=== PATIENT | female | born 1970 | race African-American/Black ===

== ENCOUNTER 2019-08-19 17:46 | Emergency (ER) | payer MEDICAID ==
[~2019-08-19] VITALS: Ht 157.5 cm; Wt 78.0 kg
[~2019-08-19 17:46] MED LIST: CARAFATE1 G1 ORAL; COLACE100 MG ORAL; CYCLOBENZAPRINE10 MG ORAL; DICYCLOMINE HCL10 MG PO; DIPHENHYDRAMINE25 M1 ORAL; LORAZEPAM2 MG/1 M3 PO; OXYCODONE-ACET1 EAC3 ORAL; PROMETHAZI6.25 MG/1 ORAL; PROMETHAZINE HC25 M1 ORAL; UNOBMED; ZOFRAN4 M1 ORAL; ZOLPIDEM TARTRA10 MG ORAL
[2019-08-19] MEDS ORDERED: Hydromorphone 0.5mg/0.5ml inj IVP ONE ×2 (18:00→20:45)
[2019-08-19] MEDS ORDERED: Omnipaque-300 100ml vial INJ PRN (18:00)
[2019-08-19 18:09] VITALS: BP 155/107
--- NOTE | 2019-08-19 18:09 | NUR ---
ED Nurse Note: PT FROM HOME CAME DUE TO LOWER ABD PAIN WITH N/V X 4 DAYS BUT WORSENED TODAY. ON AND OFF DIARRHEA. AAO X4 AND AMBULATORY.
--- NOTE | 2019-08-19 18:26 | Emergency Room Report ---
History of Present Illness General Chief Complaint: Abdominal Pain Present Illness HPI 48-year-old female history of gastroparesis idiopathic history of chronic pain, takes Percocet as an outpatient presents with diffuse achy abdominal pain started 5 days ago no aggravating relieving factors severity is moderate, intermittent, she endorses cramps, no constipation no diarrhea no nausea vomiting no chest pain or shortness of breath patient presents for evaluation Allergies: Coded Allergies: METOCLOPRAMIDE (Verified Allergy, Severe, 07/23/15) NSAIDS (NON-STEROIDAL ANTI-INFLAMMA (Verified Allergy, Severe, 07/23/15) MORPHINE (Verified Allergy, Intermediate, 07/23/15) PROCHLORPERAZINE (Verified Allergy, Intermediate, Hives, 07/23/15) SHELLFISH DERIVED (Verified Allergy, Unknown, 08/19/19) Patient History Past Medical History: see triage record Last Menstrual Period: HYSTERECTOMY Now: No Reviewed Nursing Documentation: PMH: Agreed; PSxH: Agreed Nursing Documentation-PMH Hx Cardiac Problems: Yes - endomitreosis, anemia, hypercholesterolemia Hx Cancer: No Hx Gastrointestinal Problems: Yes - gastroparesis, gastritis, HYSTERECTOMNY Hx Neurological Problems: No Physical Exam Vital Signs Date Time Temp Pulse Resp B/P (MAP) Pulse Ox O2 Delivery O2 Flow Rate FiO2 08/19/19 17:59 97.9 95 14 155/107 (123) 100 Room Air Medical Decision Making Diagnostic Impression: Primary Impression: Abdominal pain Qualified Codes: R10.84 - Generalized abdominal pain ER Course 48-year-old female history of gastroparesis presents with vague abdominal pain times a number of days, differential diagnosis includes appendicitis, gastritis , diverticulitis, SBO, Patient with soft abdomen no rebound no guarding, CT scan negative, white blood cell count normal Patient without a UTI Pain has been persisting for greater than 3 days, no acute emergent pathology at this time Disposition home with return precautions Laboratory Tests Test 08/19/19 18:20 08/19/19 18:25 White Blood Count 5.7 K/UL (4.8-10.8) Red Blood Count 5.10 M/UL (4.20-5.40) Hemoglobin 13.4 G/DL (12.0-16.0) Hematocrit 41.7 % (37.0-47.0) Mean Corpuscular Volume 82 FL (80-99) Mean Corpuscular Hemoglobin 26.2 PG (27.0-31.0) L Mean Corpuscular Hemoglobin Concent 32.1 G/DL (32.0-36.0) Red Cell Distribution Width 12.2 % (11.6-14.8) Platelet Count 325 K/UL (150-450) Mean Platelet Volume 5.9 FL (6.5-10.1) L Neutrophils (%) (Auto) 52.1 % (45.0-75.0) Lymphocytes (%) (Auto) 41.1 % (20.0-45.0) Monocytes (%) (Auto) 3.9 % (1.0-10.0) Eosinophils (%) (Auto) 1.7 % (0.0-3.0) Basophils (%) (Auto) 1.3 % (0.0-2.0) Sodium Level 139 MMOL/L (136-145) Potassium Level 3.6 MMOL/L (3.5-5.1) Chloride Level 101 MMOL/L (98-107) Carbon Dioxide Level 28 MMOL/L (21-32) Anion Gap 10 mmol/L (5-15) Blood Urea Nitrogen 7 mg/dL (7-18) Creatinine 0.7 MG/DL (0.55-1.30) Estimate Glomerular Filtration Rate > 60 mL/min (>60) Glucose Level 89 MG/DL (74-106) Calcium Level 8.8 MG/DL (8.5-10.1) Total Bilirubin 0.2 MG/DL (0.2-1.0) Aspartate Amino Transferase (AST) 21 U/L (15-37) Alanine Aminotransferase (ALT) 23 U/L (12-78) Alkaline Phosphatase 77 U/L (46-116) Total Protein 8.2 G/DL (6.4-8.2) Albumin 3.9 G/DL (3.4-5.0) Globulin 4.3 g/dL Albumin/Globulin Ratio 0.9 (1.0-2.7) L Lipase 43 U/L (73-393) L Urine Color Pale yellow Urine Appearance Clear Urine pH 7 (4.5-8.0) Urine Specific [place] 1.005 (1.005-1.035) Urine Protein Negative (NEGATIVE) Urine Glucose (UA) Negative (NEGATIVE) Urine Ketones Negative (NEGATIVE) Urine Blood Negative (NEGATIVE) Urine Nitrite Negative (NEGATIVE) Urine Bilirubin Negative (NEGATIVE) Urine Urobilinogen Normal MG/DL (0.0-1.0) Urine Leukocyte Esterase Negative (NEGATIVE) CT/MRI/US Diagnostic Results CT/MRI/US Diagnostic Results : Impression Procedure: CT Abdomen Pelvis w/Contrast CT ABDOMEN + PELVIS With Contrast: No acute process along the GI tract. Status post appendectomy. No free fluid. Status post hysterectomy and cholecystectomy. Hemangioma within hepatic segment 8. Unremarkable appearance of the pancreas, spleen, adrenal glands, and kidneys. Dictated By: Bebeto Townsend M.D. Electronically Signed By: Signed Date/Time CC: Last Vital Signs Date Time Temp Pulse Resp B/P (MAP) Pulse Ox O2 Delivery O2 Flow Rate FiO2 08/19/19 18:09 80 18 Room Air 08/19/19 18:09 97.9 155/107 100 Disposition: HOME, SELF-CARE Condition: Stable Referrals: [facility] Patient Instructions: Abdominal Pain, Adult Additional Instructions: The patient was provided with discharge instructions, notified to follow-up with a primary care doctor and or specialist in the next 24-48 hours, and to return to the ED if they have worsening of their symptoms. Please note that this report is being documented using [employer] technology. This can lead to erroneous entry secondary to incorrect interpretation by the dictating instrument. Lenard Shaffer MD Aug 19, 2019 18:26
[2019-08-19 18:30] LABS: BASOPHILS % (AUTO) 1.3 % (0.0-2.0); EOSINOPHILS % (AUTO) 1.7 % (0.0-3.0); HEMATOCRIT 41.7 % (37.0-47.0); HEMOGLOBIN 13.4 G/DL (12.0-16.0); LYMPHOCYTES % (AUTO) 41.1 % (20.0-45.0); MEAN CORPUSCULAR VOLUME 82 FL (80-99); MONOCYTES % (AUTO) 3.9 % (1.0-10.0); NEUTROPHILS % (AUTO) 52.1 % (45.0-75.0); PLATELET COUNT 325 K/UL (150-450); RED CELL DISTRIBUTION WIDTH 12.2 % (11.6-14.8); WHITE BLOOD COUNT 5.7 K/UL (4.8-10.8)
--- NOTE | 2019-08-19 18:32 | NUR ---
ED Nurse Note: COLLECTED BLOOD/URINE THEN SENT.
[2019-08-19 18:45] LABS: ANION GAP 10 mmol/L (5-15); BLOOD UREA NITROGEN 7 mg/dL (7-18); CALCIUM 8.8 MG/DL (8.5-10.1); CARBON DIOXIDE 28 MMOL/L (21-32); CHLORIDE 101 MMOL/L (98-107); CREATININE 0.7 MG/DL (0.55-1.30); POTASSIUM 3.6 MMOL/L (3.5-5.1); SODIUM 139 MMOL/L (136-145)
[2019-08-19 18:46] LABS: APPEARANCE,URINE CLEAR; BILIRUBIN, URINE NEGATIVE (NEGATIVE); COLOR,URINE PALE YELLOW; GLUCOSE, URINE (UA) NEGATIVE (NEGATIVE); KETONES,URINE NEGATIVE (NEGATIVE); LEUKOCYTE ESTERASE ,URINE NEGATIVE (NEGATIVE); NITRITE,URINE NEGATIVE (NEGATIVE); PH,URINE 7 (4.5-8.0); PROTEIN,URINE NEGATIVE (NEGATIVE); UROBILINOGEN,URINE NORMAL MG/DL (0.0-1.0)
[2019-08-19 18:50] LABS: ALANINE AMINOTRANSFERASE 23 U/L (12-78); ALBUMIN 3.9 G/DL (3.4-5.0); ALBUMIN/GLOBULIN RATIO 0.9 (1.0-2.7); ALKALINE PHOSPHATASE 77 U/L (46-116); ASPARTATE AMINO TRANSFERASE 21 U/L (15-37); BILIRUBIN,TOTAL 0.2 MG/DL (0.2-1.0)
--- NOTE | 2019-08-19 19:12 | NUR ---
ED Nurse Note: PT STATES THAT SHE IS ALLERGIC TO SHELLFISH AND DR LUZ WAS NOTIFIED AND PT STILL WILL CONTINUE TO UNDERGO CT SCAN PROCEDURE OF ABDOMEN WITH CONTRAST.
[2019-08-19] MEDS ORDERED: DiphenhydrAMINE 50mg/ml Inj IVP ONE (19:15)
--- NOTE | 2019-08-19 19:15 | NUR ---
HAND-OFF: Report given to KEVON TAVAREZ.
--- NOTE | 2019-08-19 19:16 | NUR ---
ED Nurse Note: Received report from Valentina TAVAREZ. Patient alert and oriented, verbally responsive. Will cont to monitor.
--- NOTE | 2019-08-19 19:25 | NUR ---
ED Nurse Note: Patient was taken for CT.
--- NOTE | 2019-08-19 19:37 | NUR ---
ED Nurse Note: Patient came back from CT.
--- NOTE | 2019-08-19 20:06 | Diagnostic Imaging Report ---
INDICATION: Abdominal pain TECHNIQUE: Continuous helical transaxial imaging of the abdomen and pelvis was obtained from the lung bases to the pubic symphysis during intravenous contrast administration. Coronal 2-D reformats were also obtained. Study obtained in a Siemens sensation [address] Automatic Exposure Control was utilized. Total Dose length Product (DLP): 1496.[address] Dose Index Volume (CTDIvol): 25.9 mGy COMPARISON: None FINDINGS: Lungs: The visualized lung bases are clear. Liver: In the dome of the liver there is a hypodense mass measuring approximately 2.3 x 1.9 cm. There is suggestion of globular enhancement at the periphery of the mass, which likely represents a hemangioma. This study was only obtained during the portal venous phase of enhancement is incomplete with making a definitive diagnosis. Suggest either ultrasound correlation or repeat CT with dynamic multiphase hemangioma protocol. The liver is otherwise unremarkable. Gallbladder/biliary system: Cholecystectomy clips noted. No biliary ductal dilatation identified.. Spleen: Normal Pancreas: Normal Kidneys: Normal. No hydronephrosis identified. Adrenal glands: Normal Bowel: Surgical clips noted in the expected location of the appendix which is not identified. Bowel gas pattern appears nonobstructive. Moderate stool noted in the colon. Bladder: Normal Peritoneum: There is no free fluid. Appendix: Appendectomy noted There is surgical absence of the uterus. Bones: Normal IMPRESSION: No acute findings. Suspected hemangioma and within the liver. Suggest ultrasound correlation or repeat CT in multiple phases of enhancement. Status post cholecystectomy and hysterectomy. [facility] has communicated the preliminary results to the Emergency Department. Their findings are largely concordant with this report. The CT scanner at [facility] is accredited by the [employer] and the scans are performed using dose optimization techniques as appropriate to a performed exam including Automatic Exposure control.
[2019-08-19 20:56] VITALS: BP 135/80
--- NOTE | 2019-08-19 20:56 | NUR ---
ED Nurse Note: Pt cleared by ERMD for discharge. DC instructions was given and explained to pt and verbalized understanding of teachings. All medical deviecs such as ID band and IV line removed. Pt is AAO x4, ambulatory and left with all personal belongings. Accompanied by .
== END 2019-08-19 20:56 | disposition home or self-care (01) ==
LOC: EMR 18:26
DX: R10.84 Generalized abdominal pain (principal); Z88.8 Allergy status to other drugs, medicaments and biological substances; Z88.6 Allergy status to analgesic agent; E78.00 Pure hypercholesterolemia, unspecified; Z90.710 Acquired absence of both cervix and uterus; Z90.49 Acquired absence of other specified parts of digestive tract
CPT/HCPCS: 36415; 74177; 80053; 81003; 83690; 85025; 96361; 96374; 96375; 96376; J1170; J1200; J2405; J7030; Q9967; Z7502; 99284

== ENCOUNTER 2019-09-06 23:27 | Emergency (ER) | payer MEDICAID ==
[~2019-09-06] VITALS: Ht 157.5 cm; Wt 77.1 kg
--- NOTE | 2019-09-06 23:43 | NUR ---
ED Nurse Note: pt presents to ED c/o LLQ abd px that started at around 2300 earlier today. pt states that she was driving when the px suddenly happened and reports thinking that it feels like a hernia. she has had hernias in the past and thinks this is the same but more painful. pt states that she felt something in her LLQ that "moved" since onset of symptoms. pt is also nauseated without vomiting. she describes the px as "sharp," "stabbing," and "throbbing." pt is tearful upon inspection, LLQ is tender to palpation
[2019-09-06 23:46] VITALS: BP 140/95
[2019-09-07 00:11] LABS: APPEARANCE,URINE CLEAR; BILIRUBIN, URINE NEGATIVE (NEGATIVE); GLUCOSE, URINE (UA) NEGATIVE (NEGATIVE); KETONES,URINE NEGATIVE (NEGATIVE); LEUKOCYTE ESTERASE ,URINE NEGATIVE (NEGATIVE); NITRITE,URINE NEGATIVE (NEGATIVE); PH,URINE 6.5 (4.5-8.0); PROTEIN,URINE NEGATIVE (NEGATIVE); UROBILINOGEN,URINE NORMAL MG/DL (0.0-1.0)
[2019-09-07 00:13] LABS: COLOR,URINE YELLOW
[2019-09-07] MEDS ORDERED: HYDROmorphone 1mg/ml Carpuject IVP ONE (00:15)
[2019-09-07] MEDS ORDERED: Omnipaque-300 100ml vial INJ PRN (00:15)
[2019-09-07] MEDS ORDERED: DiphenhydrAMINE 50mg/ml Inj IVP ONE (00:15)
[2019-09-07 00:29] LABS: BASOPHILS % (AUTO) 1.2 % (0.0-2.0); EOSINOPHILS % (AUTO) 1.2 % (0.0-3.0); HEMATOCRIT 44.4 % (37.0-47.0); HEMOGLOBIN 14.3 G/DL (12.0-16.0); LYMPHOCYTES % (AUTO) 33.8 % (20.0-45.0); MEAN CORPUSCULAR VOLUME 83 FL (80-99); MONOCYTES % (AUTO) 4.9 % (1.0-10.0); NEUTROPHILS % (AUTO) 58.9 % (45.0-75.0); PLATELET COUNT 339 K/UL (150-450); RED BLOOD COUNT 5.34 M/UL (4.20-5.40); RED CELL DISTRIBUTION WIDTH 12.1 % (11.6-14.8)
[2019-09-07 00:41] LABS: ANION GAP 13 mmol/L (5-15); BLOOD UREA NITROGEN 7 mg/dL (7-18); CARBON DIOXIDE 23 MMOL/L (21-32); CHLORIDE 106 MMOL/L (98-107); CREATININE 0.6 MG/DL (0.55-1.30); POTASSIUM 3.9 MMOL/L (3.5-5.1); SODIUM 142 MMOL/L (136-145)
[2019-09-07 00:46] LABS: ALANINE AMINOTRANSFERASE 43 U/L (12-78); ALBUMIN 4.3 G/DL (3.4-5.0); ALBUMIN/GLOBULIN RATIO 0.9 (1.0-2.7); ALKALINE PHOSPHATASE 91 U/L (46-116); ASPARTATE AMINO TRANSFERASE 26 U/L (15-37); BILIRUBIN,TOTAL 0.2 MG/DL (0.2-1.0)
--- NOTE | 2019-09-07 01:10 | NUR ---
ED Nurse Note: pt transported to CT via wheelchair
--- NOTE | 2019-09-07 01:36 | NUR ---
ED Nurse Note: pt returned from CT
--- NOTE | 2019-09-07 01:38 | NUR ---
Patient came back from CT- IV infiltrated. SL removed.
[2019-09-07] MEDS ORDERED: Ondansetron ODT 8mg tab ORAL ONE (02:45)
[2019-09-07] MEDS ORDERED: HYDROmorphone 1mg/ml Carpuject IM ONE (02:45)
--- NOTE | 2019-09-07 02:48 | Diagnostic Imaging Report ---
EXAM: CT Abdomen and Pelvis With Intravenous Contrast CLINICAL HISTORY: ABD PAIN TECHNIQUE: Axial computed tomography images of the abdomen and pelvis with intravenous contrast. CTDI is 26.7 mGy and DLP is 1532 mGy-cm. One or more of the following dose reduction techniques were used: automated exposure control, adjustment of the mA and/or kV according to patient size, use of iterative reconstruction technique. COMPARISON: Soft tissue neck CT 08/19/19. FINDINGS: Lung bases: Unremarkable. No mass. No consolidation. ABDOMEN: Liver: Unremarkable. No mass. Gallbladder and bile ducts: Unremarkable. No calcified stones. No ductal dilation. Pancreas: Unremarkable. No mass. No ductal dilation. Spleen: Unremarkable. No splenomegaly. Adrenals: Unremarkable. No mass. Kidneys and ureters: Unremarkable. No solid mass. No hydronephrosis. Stomach and bowel: Gas throughout the colon. No colitis, diverticulitis, appendicitis or bowel obstruction. PELVIS: Appendix: See above. Bladder: Unremarkable. No mass. Reproductive: Unremarkable as visualized. ABDOMEN and PELVIS: Intraperitoneal space: Unremarkable. No free air. No significant fluid collection. Bones/joints: No acute fracture. No dislocation. Soft tissues: Unremarkable. Vasculature: Unremarkable. No abdominal aortic aneurysm. Lymph nodes: Unremarkable. No enlarged lymph nodes. IMPRESSION: 1. No acute or inflammatory disease or bowel obstruction. 2. Prior cholecystectomy. 3. No other acute disease.
--- NOTE | 2019-09-07 03:09 | Emergency Room Report ---
History of Present Illness General Chief Complaint: Abdominal Pain Source: Patient Present Illness HPI 48-year-old female presents with left lower quadrant pain that started 1 hour prior to arrival she felt her stomach ache and she felt a knot, that was palpable, no vomiting but she endorsed nausea and tenderness of the left lower quadrant severity was moderate, constant no known aggravating alleviating factors, patient does have a history of gastroparesis, patient also history of vague hernias she has a history of hysterectomy as well patient denies any diarrhea fevers or chills or chest pain or shortness of breath, patient was worried that something happened to her hernia patient presents for evaluation Allergies: Coded Allergies: METOCLOPRAMIDE (Verified Allergy, Severe, 07/23/15) NSAIDS (NON-STEROIDAL ANTI-INFLAMMA (Verified Allergy, Severe, 07/23/15) MORPHINE (Verified Allergy, Intermediate, 07/23/15) PROCHLORPERAZINE (Verified Allergy, Intermediate, Hives, 07/23/15) SHELLFISH DERIVED (Verified Allergy, Unknown, 08/19/19) Patient History Past Medical History: see triage record Last Menstrual Period: na Reviewed Nursing Documentation: PMH: Agreed; PSxH: Agreed Nursing Documentation-PMH Hx Cardiac Problems: Yes - endomitreosis, anemia, hypercholesterolemia Hx Cancer: No Hx Gastrointestinal Problems: Yes - gastroparesis, gastritis, HYSTERECTOMNY Hx Neurological Problems: No Review of Systems All Other Systems: negative except mentioned in HPI Physical Exam Vital Signs Date Time Temp Pulse Resp B/P (MAP) Pulse Ox O2 Delivery O2 Flow Rate FiO2 09/06/19 23:31 98.1 97 20 140/95 (110) 97 Room Air Sp02 EP Interpretation: reviewed, normal General Appearance: well appearing, no apparent distress, alert Head: normocephalic, atraumatic Eyes: bilateral eye PERRL, bilateral eye EOMI ENT: uvula midline, moist mucus membranes Neck: supple, thyroid normal, supple/symm/no masses Respiratory: lungs clear, no respiratory distress, no retraction, no accessory muscle use Cardiovascular #1: normal peripheral pulses, regular rate, rhythm, no edema, no gallop, no murmur Gastrointestinal: non tender, soft, no guarding, no rebound Musculoskeletal: normal inspection Neurologic: alert, oriented x3 Psychiatric: mood/affect normal Skin: no rash, warm/dry Medical Decision Making Diagnostic Impression: Primary Impression: Abdominal pain Qualified Codes: R10.32 - Left lower quadrant pain ER Course 48-year-old female presents with vague abdominal pain left lower quadrant possible SBO versus bowel obstruction versus diverticulitis, labs show no acute abnormalities, additionally CT scan shows no acute processes, patient's pain was well-controlled, counseled patient about strict abdominal return precautions , patient states 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, disposition home with return precautions Laboratory Tests Test 09/06/19 23:41 09/07/19 00:05 Urine Color Yellow Urine Appearance Clear Urine pH 6.5 (4.5-8.0) Urine Specific [place] 1.010 (1.005-1.035) Urine Protein Negative (NEGATIVE) Urine Glucose (UA) Negative (NEGATIVE) Urine Ketones Negative (NEGATIVE) Urine Blood Negative (NEGATIVE) Urine Nitrite Negative (NEGATIVE) Urine Bilirubin Negative (NEGATIVE) Urine Urobilinogen Normal MG/DL (0.0-1.0) Urine Leukocyte Esterase Negative (NEGATIVE) Urine HCG, Qualitative Negative (NEGATIVE) White Blood Count 6.0 K/UL (4.8-10.8) Red Blood Count 5.34 M/UL (4.20-5.40) Hemoglobin 14.3 G/DL (12.0-16.0) Hematocrit 44.4 % (37.0-47.0) Mean Corpuscular Volume 83 FL (80-99) Mean Corpuscular Hemoglobin 26.8 PG (27.0-31.0) L Mean Corpuscular Hemoglobin Concent 32.2 G/DL (32.0-36.0) Red Cell Distribution Width 12.1 % (11.6-14.8) Platelet Count 339 K/UL (150-450) Mean Platelet Volume 5.8 FL (6.5-10.1) L Neutrophils (%) (Auto) 58.9 % (45.0-75.0) Lymphocytes (%) (Auto) 33.8 % (20.0-45.0) Monocytes (%) (Auto) 4.9 % (1.0-10.0) Eosinophils (%) (Auto) 1.2 % (0.0-3.0) Basophils (%) (Auto) 1.2 % (0.0-2.0) Sodium Level 142 MMOL/L (136-145) Potassium Level 3.9 MMOL/L (3.5-5.1) Chloride Level 106 MMOL/L (98-107) Carbon Dioxide Level 23 MMOL/L (21-32) Anion Gap 13 mmol/L (5-15) Blood Urea Nitrogen 7 mg/dL (7-18) Creatinine 0.6 MG/DL (0.55-1.30) Estimate Glomerular Filtration Rate > 60 mL/min (>60) Glucose Level 97 MG/DL (74-106) Calcium Level 9.0 MG/DL (8.5-10.1) Total Bilirubin 0.2 MG/DL (0.2-1.0) Aspartate Amino Transferase (AST) 26 U/L (15-37) Alanine Aminotransferase (ALT) 43 U/L (12-78) Alkaline Phosphatase 91 U/L (46-116) Total Protein 9.1 G/DL (6.4-8.2) H Albumin 4.3 G/DL (3.4-5.0) Globulin 4.8 g/dL Albumin/Globulin Ratio 0.9 (1.0-2.7) L Lipase 59 U/L (73-393) L Human Chorionic Gonadotropin, Quant 3 mIU/mL (1-6) CT/MRI/US Diagnostic Results CT/MRI/US Diagnostic Results : Impression Procedure: CT Abdomen Pelvis w/Contrast EXAM: CT Abdomen and Pelvis With Intravenous Contrast CLINICAL HISTORY: ABD PAIN TECHNIQUE: Axial computed tomography images of the abdomen and pelvis with intravenous contrast. CTDI is 26.7 mGy and DLP is 1532 mGy-cm. One or more of the following dose reduction techniques were used: automated exposure control, adjustment of the mA and/or kV according to patient size, use of iterative reconstruction technique. COMPARISON: Soft tissue neck CT 08/19/19. FINDINGS: Lung bases: Unremarkable. No mass. No consolidation. ABDOMEN: Liver: Unremarkable. No mass. Gallbladder and bile ducts: Unremarkable. No calcified stones. No ductal dilation. Pancreas: Unremarkable. No mass. No ductal dilation. Spleen: Unremarkable. No splenomegaly. Adrenals: Unremarkable. No mass. Kidneys and ureters: Unremarkable. No solid mass. No hydronephrosis. Stomach and bowel: Gas throughout the colon. No colitis, diverticulitis, appendicitis or bowel obstruction. PELVIS: Appendix: See above. Bladder: Unremarkable. No mass. Reproductive: Unremarkable as visualized. ABDOMEN and PELVIS: Intraperitoneal space: Unremarkable. No free air. No significant fluid collection. Bones/joints: No acute fracture. No dislocation. Soft tissues: Unremarkable. Vasculature: Unremarkable. No abdominal aortic aneurysm. Lymph nodes: Unremarkable. No enlarged lymph nodes. IMPRESSION: 1. No acute or inflammatory disease or bowel obstruction. 2. Prior cholecystectomy. 3. No other acute disease. Dictated By: Gregg Basurto MD Electronically Signed By: Gregg Basurto MD Signed Date/Time 09/07/19 0247 CC: Lenard Shaffer MD Last Vital Signs Date Time Temp Pulse Resp B/P (MAP) Pulse Ox O2 Delivery O2 Flow Rate FiO2 09/07/19 01:00 98.1 09/06/19 23:46 97 20 Room Air 09/06/19 23:46 140/95 97 Condition: Stable Scripts Dicyclomine Hcl* (DICYCLOMINE HCL*) 10 Mg Capsule 10 MG ORAL QID PRN for Abdominal cramps, #20 CAP Prov: Lenard Shaffer MD 09/07/19 Referrals: [facility],REFERRING (PCP) [facility]. [facility] Patient Instructions: Abdominal Pain, Adult Additional Instructions: The patient was provided with discharge instructions, notified to follow-up with a primary care doctor and or specialist in the next 24-48 hours, and to return to the ED if they have worsening of their symptoms. Please note that this report is being documented using [employer] technology. This can lead to erroneous entry secondary to incorrect interpretation by the dictating instrument. Lenard Shaffer MD Sep 07, 2019 03:09
[2019-09-07] MEDS ORDERED: DICYCLOMINE HCL10 MG ORAL (03:33)
[2019-09-07 03:35] VITALS: BP 137/94
--- NOTE | 2019-09-07 03:35 | NUR ---
ER DISCHARGE NOTE: Patient is cleared to be discharged per ERMD, pt is aox4, on room air, with stable vital signs. pt and were given dc and prescription instructions. both pt and spouse verbalized understanding of teachings. pt id band and iv site removed without complications. pt is able to ambulate with steady gait. pt took all belongings.
== END 2019-09-07 03:35 | disposition home or self-care (01) ==
LOC: EMR 23:30
DX: R10.32 Left lower quadrant pain (principal); E78.00 Pure hypercholesterolemia, unspecified; I51.9 Heart disease, unspecified; K31.84 Gastroparesis; Z90.710 Acquired absence of both cervix and uterus
CPT/HCPCS: 36415; 74177; 80053; 81003; 81025; 83690; 84702; 85025; 96372; 96374; 96375; J1170; J1200; J2405; Q0162; Q9967; S0028; Z7502; 99284

== ENCOUNTER 2019-10-31 14:47 | Inpatient (IN) | payer MEDICAID ==
[~2019-10-31] VITALS: Ht 157.5 cm; Wt 79.4 kg
[~2019-10-31 14:47] MED LIST changes: +DICYCLOMINE HCL10 MG ORAL
--- NOTE | 2019-10-31 14:55 | NUR ---
ED Nurse Note: patient walked into ED from home c/o chills and vomiting for 2 days. patient reports she was unable to alleviate chills due to vomiting, she attempted to take tylenol but unable to keep it down. patient reports lower right back pain. patient also reports generalized bodyaches and diffuse lower abdominal pain. patient is alert awake x4 ambulatory, breathing unlabored and even, able to speak full sentences. patient on a hospital gown, on a quality assurance monitor.
--- NOTE | 2019-10-31 15:05 | NUR ---
ED Nurse Note: unsuccessful at IV attempt. notified to Marilee SOLIS
--- NOTE | 2019-10-31 15:10 | NUR ---
ED Nurse Note: urine sample and flu swab sent to lab.
[2019-10-31] MEDS ORDERED: cefTRIAXone 1 GM in NS 55 ML IVPB ONE (15:15)
--- NOTE | 2019-10-31 15:25 | Emergency Room Report ---
History of Present Illness General Chief Complaint: General Complaint Source: Patient Present Illness HPI 48-year-old female, presents with dysuria, right flank pain, left leg pain x2 days no aggravating alleviating factors severity is mild, constant he endorses fever/chills, patient presents for evaluation Allergies: Coded Allergies: METOCLOPRAMIDE (Verified Allergy, Severe, 07/23/15) NSAIDS (NON-STEROIDAL ANTI-INFLAMMA (Verified Allergy, Severe, 07/23/15) MORPHINE (Verified Allergy, Intermediate, 07/23/15) PROCHLORPERAZINE (Verified Allergy, Intermediate, Hives, 07/23/15) SHELLFISH DERIVED (Verified Allergy, Unknown, 08/19/19) Patient History Past Medical History: see triage record Last Menstrual Period: hystrectomy Reviewed Nursing Documentation: PMH: Agreed; PSxH: Agreed Nursing Documentation-PMH Past Medical History: No History, Except For Hx Cancer: No Hx Gastrointestinal Problems: Yes - gastroparesis, gastritis, HYSTERECTOMNY Hx Neurological Problems: No Review of Systems All Other Systems: negative except mentioned in HPI Physical Exam Vital Signs Date Time Temp Pulse Resp B/P (MAP) Pulse Ox O2 Delivery O2 Flow Rate FiO2 10/31/19 14:49 102.4 89 16 128/95 (106) 100 Room Air Sp02 EP Interpretation: reviewed, normal General Appearance: well appearing, no apparent distress, alert Head: normocephalic, atraumatic Eyes: bilateral eye PERRL, bilateral eye EOMI ENT: uvula midline, moist mucus membranes Neck: supple, thyroid normal, supple/symm/no masses Respiratory: lungs clear, no respiratory distress, no retraction, no accessory muscle use Cardiovascular #1: normal peripheral pulses, regular rate, rhythm, no edema, no gallop, no murmur Gastrointestinal: soft, no guarding, no rebound, tenderness - Suprapubically Genitourinary: CVA tenderness (R), CVA tenderness (L) Musculoskeletal: normal inspection Neurologic: alert, oriented x3 Psychiatric: mood/affect normal Skin: no rash, warm/dry Medical Decision Making Diagnostic Impression: Primary Impression: Pyelonephritis ER Course 48-year-old female presents with signs and symptoms concerning for pyelonephritis will provide patient with ceftriaxone, will obtain labs, will rehydrate patient Patient with Pyelo ceftriaxone given patient given fluids, also evaluations later patient's heart rate has come down Pain well controlled patient admitted to Dr. Anand Laboratory Tests Test 10/31/19 15:05 10/31/19 16:15 Urine Color Pale yellow Urine Appearance Cloudy Urine pH 6 (4.5-8.0) Urine Specific [place] 1.010 (1.005-1.035) Urine Protein 2+ (NEGATIVE) H Urine Glucose (UA) Negative (NEGATIVE) Urine Ketones Negative (NEGATIVE) Urine Blood 3+ (NEGATIVE) H Urine Nitrite Positive (NEGATIVE) H Urine Bilirubin Negative (NEGATIVE) Urine Urobilinogen 1 MG/DL (0.0-1.0) H Urine Leukocyte Esterase 1+ (NEGATIVE) H Urine RBC 5-10 /HPF (0 - 2) H Urine WBC 20-30 /HPF (0 - 2) H Urine Squamous Epithelial Cells Many /LPF (NONE/OCC) H Urine Bacteria Many /HPF (NONE) H White Blood Count 10.7 K/UL (4.8-10.8) Red Blood Count 4.21 M/UL (4.20-5.40) Hemoglobin 11.2 G/DL (12.0-16.0) L Hematocrit 35.4 % (37.0-47.0) L Mean Corpuscular Volume 84 FL (80-99) Mean Corpuscular Hemoglobin 26.5 PG (27.0-31.0) L Mean Corpuscular Hemoglobin Concent 31.6 G/DL (32.0-36.0) L Red Cell Distribution Width 13.7 % (11.6-14.8) Platelet Count 306 K/UL (150-450) Mean Platelet Volume 6.7 FL (6.5-10.1) Neutrophils (%) (Auto) 77.8 % (45.0-75.0) H Lymphocytes (%) (Auto) 13.6 % (20.0-45.0) L Monocytes (%) (Auto) 6.8 % (1.0-10.0) Eosinophils (%) (Auto) 0.3 % (0.0-3.0) Basophils (%) (Auto) 1.5 % (0.0-2.0) Prothrombin Time 9.6 SEC (9.30-11.50) Prothrombin Time INR 0.9 (0.9-1.1) Activated Partial Thromboplast Time 32 SEC (23-33) Sodium Level 138 MMOL/L (136-145) Potassium Level 3.5 MMOL/L (3.5-5.1) Chloride Level 100 MMOL/L (98-107) Carbon Dioxide Level 25 MMOL/L (21-32) Anion Gap 13 mmol/L (5-15) Blood Urea Nitrogen 7 mg/dL (7-18) Creatinine 0.7 MG/DL (0.55-1.30) Estimate Glomerular Filtration Rate > 60 mL/min (>60) Glucose Level 92 MG/DL (74-106) Lactic Acid Level 0.40 mmol/L (0.4-2.0) Calcium Level 8.8 MG/DL (8.5-10.1) Phosphorus Level 1.5 MG/DL (2.5-4.9) L Magnesium Level 1.5 MG/DL (1.8-2.4) L Total Bilirubin 0.3 MG/DL (0.2-1.0) Aspartate Amino Transferase (AST) 19 U/L (15-37) Alanine Aminotransferase (ALT) 29 U/L (12-78) Alkaline Phosphatase 81 U/L (46-116) Total Creatine Kinase 120 U/L (26-308) Troponin I 0.000 ng/mL (0.000-0.056) Pro-B-Type Natriuretic Peptide 290 pg/mL (0-125) H Total Protein 7.5 G/DL (6.4-8.2) Albumin 3.4 G/DL (3.4-5.0) Globulin 4.1 g/dL Albumin/Globulin Ratio 0.8 (1.0-2.7) L Lipase 47 U/L (73-393) L Human Chorionic Gonadotropin, Quant 1 mIU/mL (1-6) Microbiology Date/Time Source Procedure Growth Status 10/31/19 15:00 Nasal Nares - Final Complete 10/31/19 15:00 Nasal Nares - Final Complete EKG Diagnostic Results EKG Time: 15:28 EP Interpretation: Sinus tachycardia, rate 112, QTc 417, no acute ST elevations , normal axis Rhythm Strip Diag. Results Rhythm Strip Time: 16:27 EP Interpretation: yes Rate: 102 Rhythm: no PVC's, no ectopy, other - sinus tachycardia Chest X-Ray Diagnostic Results Chest X-Ray Diagnostic Results : Chest X-Ray Ordered: Yes # of Views/Limited/Complete: 1 View Indication: Other - preop EP Interpretation: Yes Interpretation: no consolidation, no effusion, no pneumothorax, no acute cardiopulmonary disease Impression: No acute disease Electronically Signed by: Lenard Shaffer MD CT/MRI/US Diagnostic Results CT/MRI/US Diagnostic Results : Impression Preliminary Findings Only See Final Report For Complete Findings CT ABDOMEN & PELVIS With Contrast: A symmetric perinephric fat stranding on the left. No renal or ureteral stones. No hydronephrosis. Infection can have this appearance in the appropriate clinical setting. No acute process along the GI tract. Status post appendectomy. Likely hemangioma within hepatic segment 8. Cholecystectomy and hysterectomy. Radiologist: Bebeto Townsend MD Study ready at 17:54 and initial results transmitted at 18:49 *This report constitutes a preliminary interpretation only. Non-acute findings felt to be unrelated to the clinical presentation may not be discussed in this report. The study will be interpreted and a final report will be generated by the local Radiologist the following shift. To reach the hospital radiology department call [phone]. If a discrepancy is found between the preliminary and final interpretations of this study, please notify us via our Client Portal at [email or web address] under QA Exams. You can also fax this report with a description of the discrepancy, or include the final report, to our daytime fax number [phone]. If faxing, please indicate the severity of discrepancy using one of the following categories: [ ] 1 - Agree/Informational [ ] 2 - Unlikely to Affect Management [ ] 3 - Possible Eventual Change of Management [ ] 4 - Probable Immediate Change of Management [id number] Last Vital Signs Date Time Temp Pulse Resp B/P (MAP) Pulse Ox O2 Delivery O2 Flow Rate FiO2 10/31/19 14:49 102.4 89 16 128/95 (106) 100 Room Air Disposition: ADMITTED INPATIENT Condition: Stable Lenard Shaffer MD Oct 31, 2019 15:25
[2019-10-31] MEDS ORDERED: HYDROmorphone 1mg/ml Carpuject IVP ONE ×2 (15:30→17:15)
[2019-10-31 15:35] LABS: APPEARANCE,URINE CLOUDY; BILIRUBIN, URINE NEGATIVE (NEGATIVE); COLOR,URINE PALE YELLOW; GLUCOSE, URINE (UA) NEGATIVE (NEGATIVE); KETONES,URINE NEGATIVE (NEGATIVE); LEUKOCYTE ESTERASE ,URINE 1+ (NEGATIVE); NITRITE,URINE POSITIVE (NEGATIVE); PH,URINE 6 (4.5-8.0); PROTEIN,URINE 2+ (NEGATIVE); UROBILINOGEN,URINE 1 MG/DL (0.0-1.0)
--- NOTE | 2019-10-31 15:44 | NUR ---
HAND-OFF: Report given to Karon TAVAREZ.
[2019-10-31 15:45] VITALS: BP 116/90
--- NOTE | 2019-10-31 15:45 | NUR ---
ED Nurse Note: x ray at bedside.
--- NOTE | 2019-10-31 15:52 | NUR ---
ED Nurse Note: Unable to obtain peripheral IV after 3 attempts. ER MD made aware.
--- NOTE | 2019-10-31 15:55 | NUR ---
ED Nurse Note: U/S guided IV inserted by ERMD to left AC 20g
--- NOTE | 2019-10-31 16:20 | NUR ---
ED Nurse Note: Blood sampl sent down to lab
--- NOTE | 2019-10-31 16:29 | NUR ---
ED Nurse Note: pt significant other at bedside.
--- NOTE | 2019-10-31 16:43 | Diagnostic Imaging Report ---
Indication: Dyspnea Comparison: None A single view chest radiograph was obtained. Findings: Cardiomediastinal appearance is within normal limits for age. The lungs are clear. Pulmonary vascularity is appropriate. The diaphragmatic contour is smooth and costophrenic angles are sharp. No pleural effusions are identified. The bones are unremarkable. Impression: No acute findings
[2019-10-31 16:44] LABS: BASOPHILS % (AUTO) 1.5 % (0.0-2.0); EOSINOPHILS % (AUTO) 0.3 % (0.0-3.0); HEMATOCRIT 35.4 % (37.0-47.0); HEMOGLOBIN 11.2 G/DL (12.0-16.0); LYMPHOCYTES % (AUTO) 13.6 % (20.0-45.0); MEAN CORPUSCULAR VOLUME 84 FL (80-99); MONOCYTES % (AUTO) 6.8 % (1.0-10.0); NEUTROPHILS % (AUTO) 77.8 % (45.0-75.0); PLATELET COUNT 306 K/UL (150-450); RED BLOOD COUNT 4.21 M/UL (4.20-5.40); RED CELL DISTRIBUTION WIDTH 13.7 % (11.6-14.8); WHITE BLOOD COUNT 10.7 K/UL (4.8-10.8)
[2019-10-31] MEDS ORDERED: Omnipaque-300 100ml vial INJ PRN (16:45)
[2019-10-31 16:53] LABS: INR 0.9 (0.9-1.1)
[2019-10-31 16:59] LABS: ANION GAP 13 mmol/L (5-15); BLOOD UREA NITROGEN 7 mg/dL (7-18); CALCIUM 8.8 MG/DL (8.5-10.1); CARBON DIOXIDE 25 MMOL/L (21-32); CHLORIDE 100 MMOL/L (98-107); CREATININE 0.7 MG/DL (0.55-1.30); POTASSIUM 3.5 MMOL/L (3.5-5.1); SODIUM 138 MMOL/L (136-145)
[2019-10-31 17:10] LABS: ALANINE AMINOTRANSFERASE 29 U/L (12-78); ALBUMIN 3.4 G/DL (3.4-5.0); ALBUMIN/GLOBULIN RATIO 0.8 (1.0-2.7); ALKALINE PHOSPHATASE 81 U/L (46-116); ASPARTATE AMINO TRANSFERASE 19 U/L (15-37); BILIRUBIN,TOTAL 0.3 MG/DL (0.2-1.0); CREATINE KINASE 120 U/L (26-308); PHOSPHORUS 1.5 MG/DL (2.5-4.9)
[2019-10-31] MEDS ORDERED: Acetaminophen 650 MG SUPP RECTAL ONE ×2 (17:12→17:15)
[2019-10-31] MEDS ORDERED: Solu-MEDROL 125mg Inj IVP ONE (17:15)
[2019-10-31] MEDS ORDERED: DiphenhydrAMINE 50mg/ml Inj IVP ONE (17:15)
--- NOTE | 2019-10-31 17:28 | NUR ---
ED Nurse Note: pt taken to CT
--- NOTE | 2019-10-31 17:40 | NUR ---
ED Nurse Note: pt returned back from CT
[2019-10-31] MEDS ORDERED: Hydromorphone 0.5mg/0.5ml inj IVP ONE (18:00)
[2019-10-31 18:02] VITALS: BP 131/86
--- NOTE | 2019-10-31 18:28 | NUR ---
ED Nurse Note: PT in bed resting, conversating with her spouse. No acute distress is noted.
--- NOTE | 2019-10-31 18:49 | Diagnostic Imaging Report ---
Clinical Indication: Flank pain, fever, chills, dysuria Technique: No oral contrast utilized, per emergency room physician request IV administration nonionic contrast. Venous phase spiral acquisition obtained through the abdomen and pelvis. Multiplanar reconstructions were generated. Total dose length product 584 mGycm. CTDIvol(s) 11 mGy. Dose reduction achieved using automated exposure control Comparison: 09/07/2019 Findings: . There is enlargement of the left kidney as well as edema of the perinephric fat. There is slight urothelial enhancement of the renal pelvis and proximal ureter. There is minimal if any hydronephrosis. No renal or ureteral calculi demonstrated on the left. There is a nonobstructive tiny calculus in the right lower pole. No other focal abnormality on the right. The bladder is unremarkable. The gallbladder has been removed. The liver demonstrates a low-attenuation lesion in segment 8 which measures 2.3 cm in diameter. This demonstrates some peripheral nodular enhancement, appears similar to the previous exam. A questionable smaller lesion is also seen in segment 8. No biliary ductal dilatation. The pancreas, spleen, adrenals are unremarkable. No retroperitoneal or mesenteric mass or adenopathy. The uterus is absent. No pelvic mass or adenopathy. Surgical clips are seen within the pelvis. The appendix is not definitely visualized, but no findings to suggest acute appendicitis are evident. No evidence of diverticulosis or diverticulitis. No free or loculated intraperitoneal gas or fluid. No small bowel distention. The distal esophagus, stomach, duodenum are unremarkable. The included lung bases are clear. The bones are unremarkable. Impression: Enlarged left kidney with perinephric inflammation and urothelial enhancement. This is consistent with pyelitis and nephritis, particularly in view of stated clinical history 2.3 cm right lobe liver lesion, also previously demonstrated, most likely a hemangioma. Recommend further evaluation with hemangioma protocol if not previously done. Lesion is unchanged from that earlier study of 08/19/2019 Evidence of prior hysterectomy Evidence of prior cholecystectomy. This agrees with the preliminary interpretation provided overnight by [facility] teleradiology service. The CT scanner at [facility] is accredited by the [employer] and the scans are performed using protocols designed to limit radiation exposure to as low as reasonably achievable to attain images of sufficient resolution adequate for diagnostic evaluation.
[2019-10-31] MEDS ORDERED: ATIVAN1 MG ORAL (18:58)
[2019-10-31] MEDS ORDERED: PROTONIX40 MG ORAL (18:58)
[2019-10-31] MEDS ORDERED: LO LOESTRIN FE1 EAC1 PO (18:58)
--- NOTE | 2019-10-31 18:58 | NUR ---
ED Nurse Note: Report given to Ochoa Meehan RN. pt VSS.
--- NOTE | 2019-10-31 19:10 | NUR ---
ED Nurse Note: PT was taken up to 3 east room 318 by health and safety tech in stable condition. PT is at scene. Report given to CORBY Branch. No acute distress is noted. Belonging list signed off. IV site to left AC is intact
[2019-10-31 19:15] VITALS: BP 145/89
--- NOTE | 2019-10-31 19:15 | NUR ---
NURSE NOTES: Received report from Zay GAMBOA RN at 1907. Patient arrived at the unit. Patient is a/o x4, and able to known her needs. is at bedside. Checked Belonging list and signed by patient. Head to toe assessment done. Patient c/o pain 8/10. Will give medication as ordered. VS is stable. IV site is intact and patent. Patient used bedroom. Changed Bed sheets. Bed is on alarm, locked, and lowest position. Call light within reach. Will continue to monitor.
[2019-10-31] MEDS ORDERED: DiphenhydrAMINE 25mg Tab ORAL PRN (19:30)
[2019-10-31] MEDS ORDERED: Miralax 17gm pkt ORAL PRN (19:30)
[2019-10-31] MEDS ORDERED: Nitroglycerin Subl 0.4mg tab SL PRN (19:30)
--- NOTE | 2019-10-31 20:36 | NUR ---
NURSE NOTES: Called to Dr. Good regarding pain medication and left message.
--- NOTE | 2019-10-31 21:30 | NUR ---
NURSE NOTES: Called and left message to Dr. Good regarding pain medication at 2100 and Called and left message to Dr. Anand regarding pain medication at 2130.
--- NOTE | 2019-10-31 22:00 | NUR ---
NURSE NOTES: Received call back from Dr. Good and order carried out.
[2019-10-31] MEDS: Hydromorphone 0.5mg/0.5ml inj IVP PRN (22:13)
[2019-10-31] MEDS: Piperacillin/Tazobactam 3.375 GM in NS 110 ML IVPB SCH (22:19)
[2019-10-31] MEDS: Heparin 5000 units/ml inj SUBQ SCH (22:21)
[2019-10-31] MEDS: D5 1/2NS 1,000 ML IV SCH (22:22)
[2019-11-01] VITALS: BP 135/92
[2019-11-01] MEDS ORDERED: traMADol 50mg tab ORAL PRN ×2 (00:45→11:00)
[2019-11-01] MEDS: Hydromorphone 0.5mg/0.5ml inj IVP PRN ×3 (01:17→07:43)
[2019-11-01 04:00] VITALS: BP 125/86
[2019-11-01] MEDS: Piperacillin/Tazobactam 3.375 GM in NS 110 ML IVPB SCH ×3 (05:09→22:29)
[2019-11-01 06:40] LABS: HEMATOCRIT 35.3 % (37.0-47.0); HEMOGLOBIN 11.7 G/DL (12.0-16.0); MEAN CORPUSCULAR VOLUME 83 FL (80-99); PLATELET COUNT 306 K/UL (150-450); RED BLOOD COUNT 4.25 M/UL (4.20-5.40); RED CELL DISTRIBUTION WIDTH 12.1 % (11.6-14.8); WHITE BLOOD COUNT 8.2 K/UL (4.8-10.8)
[2019-11-01 07:07] LABS: ALANINE AMINOTRANSFERASE 25 U/L (12-78); ALBUMIN 2.9 G/DL (3.4-5.0); ALBUMIN/GLOBULIN RATIO 0.7 (1.0-2.7); ALKALINE PHOSPHATASE 78 U/L (46-116); AMYLASE 24 U/L (25-115); ANION GAP 14 mmol/L (5-15); ASPARTATE AMINO TRANSFERASE 15 U/L (15-37); BILIRUBIN,TOTAL 0.2 MG/DL (0.2-1.0); BLOOD UREA NITROGEN 8 mg/dL (7-18); CALCIUM 8.1 MG/DL (8.5-10.1); CARBON DIOXIDE 22 MMOL/L (21-32); CHLORIDE 105 MMOL/L (98-107); CREATININE 0.6 MG/DL (0.55-1.30); POTASSIUM 3.3 MMOL/L (3.5-5.1); SODIUM 141 MMOL/L (136-145)
--- NOTE | 2019-11-01 07:27 | NUR ---
NURSE NOTES: Called to Dr. MCKEON REGARDING K level.
--- NOTE | 2019-11-01 07:35 | NUR ---
NURSE NOTES: WALKING ROUNDS DONE WITH NIGHT RN. PATIENT IN BED ASLEEP BUT AROUSABLE TO NAME. DISCUSSED PLAN OF CARE FOR THE DAY.QUESTIONS ANSWERED NEEDS MET. VERBALIZED UNDERSTANDING.C/O ABDOMINAL PAIN 01/04. NIGHT RN TO GIVE PAIN MEDS ORDERED. BED IN LOW AND LOCKED POSITION. CALL LIGHT WITHIN REACH.
--- NOTE | 2019-11-01 07:51 | NUR ---
HAND-OFF: Report given to Gaytan RN. Patient in stable condition.
[2019-11-01 08:00] VITALS: BP 129/95
[2019-11-01] MEDS: D5 1/2NS 1,000 ML IV SCH ×2 (08:45→22:30)
[2019-11-01] MEDS: Sucralfate 1gm tab ORAL SCH ×3 (09:00→17:52)
[2019-11-01] MEDS: Heparin 5000 units/ml inj SUBQ SCH (09:00)
[2019-11-01] MEDS: Cyclobenzaprine 10mg Tab ORAL SCH ×3 (09:00→17:52)
--- NOTE | 2019-11-01 09:05 | NUR ---
NURSE NOTES: PATIENT REFUSED TO TAKE PO MEDS AT THIS TIME DUE TO NAUSEA. MD CALLED TO ADJUST PRN TIME. AWAITING RETURN CALL. PATIENT INFORMED.
[2019-11-01] MEDS: Pantoprazole Inj IVP SCH (09:21)
[2019-11-01] MEDS ORDERED: LORazepam 1mg tab ORAL PRN (09:45)
[2019-11-01] MEDS ORDERED: Hydromorphone 0.5mg/0.5ml inj IVP PRN (10:00)
--- NOTE | 2019-11-01 10:04 | Infectious Diseases Prog Note ---
Subjective Allergies: Coded Allergies: METOCLOPRAMIDE (Verified Allergy, Severe, 07/23/15) NSAIDS (NON-STEROIDAL ANTI-INFLAMMA (Verified Allergy, Severe, 07/23/15) MORPHINE (Verified Allergy, Intermediate, 07/23/15) PROCHLORPERAZINE (Verified Allergy, Intermediate, Hives, 07/23/15) SHELLFISH DERIVED (Verified Allergy, Unknown, 08/19/19) Subjective # [id number] Objective Vital Signs Last 24 Hour Vital Signs Date Time Temp Pulse Resp B/P (MAP) Pulse Ox O2 Delivery O2 Flow Rate FiO2 11/01/19 08:13 97.6 11/01/19 08:00 97.6 81 20 129/95 (106) 97 11/01/19 04:00 97.6 95 18 125/86 (99) 84 11/01/19 00:00 98.2 18 135/92 (106) 97 10/31/19 23:39 Room Air 10/31/19 19:15 97.9 98 18 145/89 (107) 98 10/31/19 19:10 99.0 98 16 128/81 99 Room Air 10/31/19 18:28 99.0 10/31/19 18:02 99.0 109 18 131/86 100 Room Air 10/31/19 17:45 100.2 10/31/19 15:45 102.4 105 16 116/90 100 Room Air 10/31/19 15:39 89 16 Room Air 10/31/19 14:49 102.4 89 16 128/95 (106) 100 Room Air Height (Feet): 5 Height (Inches): 2.00 Weight (Pounds): 175 Microbiology Date/Time Source Procedure Growth Status 10/31/19 15:00 Nasal Nares - Final Complete 10/31/19 15:00 Nasal Nares - Final Complete 10/31/19 15:05 Urine,Clean Catch Urine Culture - Preliminary Gram Negative Bacillus 1 Resulted Laboratory Tests Test 10/31/19 15:05 10/31/19 16:15 11/01/19 05:30 Urine Color Pale yellow Urine Appearance Cloudy Urine pH 6 (4.5-8.0) Urine Specific [place] 1.010 (1.005-1.035) Urine Protein 2+ (NEGATIVE) H Urine Glucose (UA) Negative (NEGATIVE) Urine Ketones Negative (NEGATIVE) Urine Blood 3+ (NEGATIVE) H Urine Nitrite Positive (NEGATIVE) H Urine Bilirubin Negative (NEGATIVE) Urine Urobilinogen 1 MG/DL (0.0-1.0) H Urine Leukocyte Esterase 1+ (NEGATIVE) H Urine RBC 5-10 /HPF (0 - 2) H Urine WBC 20-30 /HPF (0 - 2) H Urine Squamous Epithelial Cells Many /LPF (NONE/OCC) H Urine Bacteria Many /HPF (NONE) H White Blood Count 10.7 K/UL (4.8-10.8) 8.2 K/UL (4.8-10.8) Red Blood Count 4.21 M/UL (4.20-5.40) 4.25 M/UL (4.20-5.40) Hemoglobin 11.2 G/DL (12.0-16.0) L 11.7 G/DL (12.0-16.0) L Hematocrit 35.4 % (37.0-47.0) L 35.3 % (37.0-47.0) L Mean Corpuscular Volume 84 FL (80-99) 83 FL (80-99) Mean Corpuscular Hemoglobin 26.5 PG (27.0-31.0) L 27.5 PG (27.0-31.0) Mean Corpuscular Hemoglobin Concent 31.6 G/DL (32.0-36.0) L 33.2 G/DL (32.0-36.0) Red Cell Distribution Width 13.7 % (11.6-14.8) 12.1 % (11.6-14.8) Platelet Count 306 K/UL (150-450) 306 K/UL (150-450) Mean Platelet Volume 6.7 FL (6.5-10.1) 6.3 FL (6.5-10.1) L Neutrophils (%) (Auto) 77.8 % (45.0-75.0) H % (45.0-75.0) Lymphocytes (%) (Auto) 13.6 % (20.0-45.0) L % (20.0-45.0) Monocytes (%) (Auto) 6.8 % (1.0-10.0) % (1.0-10.0) Eosinophils (%) (Auto) 0.3 % (0.0-3.0) % (0.0-3.0) Basophils (%) (Auto) 1.5 % (0.0-2.0) % (0.0-2.0) Prothrombin Time 9.6 SEC (9.30-11.50) Prothromb Time International Ratio 0.9 (0.9-1.1) Activated Partial Thromboplast Time 32 SEC (23-33) 34 SEC (23-33) H Sodium Level 138 MMOL/L (136-145) 141 MMOL/L (136-145) Potassium Level 3.5 MMOL/L (3.5-5.1) 3.3 MMOL/L (3.5-5.1) L Chloride Level 100 MMOL/L (98-107) 105 MMOL/L (98-107) Carbon Dioxide Level 25 MMOL/L (21-32) 22 MMOL/L (21-32) Anion Gap 13 mmol/L (5-15) 14 mmol/L (5-15) Blood Urea Nitrogen 7 mg/dL (7-18) 8 mg/dL (7-18) Creatinine 0.7 MG/DL (0.55-1.30) 0.6 MG/DL (0.55-1.30) Estimat Glomerular Filtration Rate > 60 mL/min (>60) > 60 mL/min (>60) Glucose Level 92 MG/DL (74-106) 146 MG/DL (74-106) H Lactic Acid Level 0.40 mmol/L (0.4-2.0) Calcium Level 8.8 MG/DL (8.5-10.1) 8.1 MG/DL (8.5-10.1) L Phosphorus Level 1.5 MG/DL (2.5-4.9) L Magnesium Level 1.5 MG/DL (1.8-2.4) L Total Bilirubin 0.3 MG/DL (0.2-1.0) 0.2 MG/DL (0.2-1.0) Aspartate Amino Transf (AST/SGOT) 19 U/L (15-37) 15 U/L (15-37) Alanine Aminotransferase (ALT/SGPT) 29 U/L (12-78) 25 U/L (12-78) Alkaline Phosphatase 81 U/L (46-116) 78 U/L (46-116) Total Creatine Kinase 120 U/L (26-308) Troponin I 0.000 ng/mL (0.000-0.056) Pro-B-Type Natriuretic Peptide 290 pg/mL (0-125) H Total Protein 7.5 G/DL (6.4-8.2) 7.0 G/DL (6.4-8.2) Albumin 3.4 G/DL (3.4-5.0) 2.9 G/DL (3.4-5.0) L Globulin 4.1 g/dL 4.1 g/dL Albumin/Globulin Ratio 0.8 (1.0-2.7) L 0.7 (1.0-2.7) L Lipase 47 U/L (73-393) L 35 U/L (73-393) L Human Chorionic Gonadotropin, Quant 1 mIU/mL (1-6) Differential Total Cells Counted 100 Neutrophils % (Manual) 89 % (45-75) H Lymphocytes % (Manual) 10 % (20-45) L Monocytes % (Manual) 1 % (1-10) Eosinophils % (Manual) 0 % (0-3) Basophils % (Manual) 0 % (0-2) Band Neutrophils 0 % (0-8) Platelet Estimate Adequate Platelet Morphology Normal Hypochromasia 1+ Amylase Level 24 U/L (25-115) L Current Medications Medications (Trade) Dose Ordered Sig/Doug Route PRN Reason Start Time Stop Time Status Last Admin Dose Admin Acetaminophen (Tylenol) 650 mg Q4H PRN ORAL fever 10/31/19 19:30 11/30/19 19:29 Cyclobenzaprine HCl (Flexeril) 10 mg THREE TIMES A DAY ORAL 11/01/19 09:00 12/01/19 08:59 Dextrose (Dextrose 50%) 25 ml Q30M PRN IV Hypoglycemia 10/31/19 19:30 11/30/19 19:29 Dextrose (Dextrose 50%) 50 ml Q30M PRN IV Hypoglycemia 10/31/19 19:30 11/30/19 19:29 Dextrose/Sodium Chloride 1,000 ml @ 75 mls/hr [id number] IV 10/31/19 19:25 11/30/19 19:24 10/31/19 22:22 Diphenhydramine HCl (Benadryl) 25 mg Q6H PRN ORAL Itching/Pruritis 10/31/19 19:30 11/30/19 19:29 Heparin Sodium (Porcine) (Heparin 5000 units/ml) 5,000 units EVERY 12 HOURS SUBQ 10/31/19 21:00 11/30/19 20:59 10/31/19 22:21 Hydromorphone HCl (Dilaudid) 1 mg Q3H PRN IVP Pain Scale (6-10) 11/01/19 13:00 11/07/19 21:59 UNV Iohexol (OMNIPAQUE-300 100ml) 100 ml NOW PRN INJ Radiology Procedure 10/31/19 16:45 11/02/19 16:40 Lorazepam (Ativan) 1 mg Q6H PRN ORAL For Anxiety 11/01/19 09:45 11/08/19 09:44 Nitroglycerin (Ntg) 0.4 mg Q5M X 3 DOSES PRN SL Prn Chest Pain 10/31/19 19:30 11/30/19 19:29 Ondansetron HCl (Zofran) 4 mg Q4H PRN IVP Nausea & Vomiting 11/01/19 09:45 12/01/19 09:44 Pantoprazole (Protonix) 40 mg DAILY IVP 11/01/19 09:00 12/01/19 08:59 11/01/19 09:21 Piperacillin Sod/ Tazobactam Sod 3.375 gm/Sodium Chloride 110 ml @ 27.5 mls/hr EVERY 8 HOURS IVPB 10/31/19 22:00 11/05/19 21:59 11/01/19 05:09 Polyethylene Glycol (Miralax) 17 gm HSPRN PRN ORAL Constipation 10/31/19 19:30 11/30/19 19:29 Sucralfate (Carafate) 1 gm TID ORAL 11/01/19 09:00 12/01/19 08:59 Temazepam (Restoril) 15 mg HSPRN PRN ORAL Insomnia 10/31/19 19:30 11/07/19 19:29 Tramadol HCl (Ultram) 50 mg Q6H PRN ORAL For Pain 11/01/19 00:45 11/08/19 00:44 Michael Lin MD Nov 01, 2019 10:04
[2019-11-01] MEDS: LORazepam 1mg tab ORAL PRN ×2 (10:34→17:56)
--- NOTE | 2019-11-01 10:56 | NUR ---
*-* INSURANCE *-* ALL CLINICALS AND REVIEWS HAVE BEEN FAXED TO: JAYDON DORMAN P: [phone] F: [phone] (FAX CLINICALS) Addendum: 11/01/19 at 1056 by ANIRUDH MURPHY CM MARTELL ZUÑIGA FAX CLINICALS TO: [phone]
[2019-11-01] MEDS: HYDROmorphone 1mg/ml Carpuject IVP PRN ×4 (11:39→21:26)
[2019-11-01 12:00] VITALS: BP 140/101
[2019-11-01] MEDS ORDERED: HYDROmorphone 1mg/ml Carpuject IVP PRN (13:00)
--- NOTE | 2019-11-01 13:36 | NUR ---
CASE MANAGEMENT: INITIAL REVIEW 48YR OLD FEMALE FROM HOME CC: GENERAL COMPLAINT; CHILLS AND VOMITING; RIGHT FLANK PAIN; LEG PAIN X2 DAY SI:PYELONEPHRITIS 102.3 89 16 128/95 100% ON RA PHOS 1.5 MG 1.5 BNP 290 H/H 11.2/35.4 IS:IV NS BOLUS X1 IV ROCEPHIN X1 IV ZOFRAN X1 IV DILAUDID X1 CT ABD/PEL - Enlarged left kidney with perinephric inflammation and urothelial enhancement CHEST X-RAY \: 3E MED SURG UNIT CASE MANAGEMENT: REVIEW 11/01/19 SI:PYELONEPHRITIS 97.7 84 18 140/101 100% ON RA K+ 3.3 BG 146 CA+ 8.1 H/H 11.7/35.3 IS:IV ZOSYN TID IV PROTONIX QD IV DILAUDID Q3HR.PRN IV ZOFRAN Q4HR/PRN ATIVAN Q6HR/PRN \: 3E MED SURG UNIT PLAN: NPO
--- NOTE | 2019-11-01 14:58 | History and Physical ---
History of Present Illness General Date patient seen: Nov 01, 2019 Time patient seen: 13:00 Reason for Hospitalization: General Complaint Present Illness HPI 48-year-old female, presents to the ED with dysuria, right flank pain, fever and chills, left leg pain x2 days no aggravating alleviating factors severity is mild, constant he endorses fever/chills, patient presents for evaluation and was found to have a UTI concerning for pyelonephritis. Admission was requested and she was given a dose of Ceftriaxone in the ED. Overnight, she was given Zosyn, IVF, NPO except ice chips. Today, she is feeling slightly better and is not interested in trying to eat. Her R CVA has tenderness. Allergies: Coded Allergies: METOCLOPRAMIDE (Verified Allergy, Severe, 07/23/15) NSAIDS (NON-STEROIDAL ANTI-INFLAMMA (Verified Allergy, Severe, 07/23/15) MORPHINE (Verified Allergy, Intermediate, 07/23/15) PROCHLORPERAZINE (Verified Allergy, Intermediate, Hives, 07/23/15) SHELLFISH DERIVED (Verified Allergy, Unknown, 08/19/19) Medication History Scheduled Cyclobenzaprine Hcl* (Flexeril*), 10 MG ORAL THREE TIMES A DAY, (Reported) Dicyclomine Hcl* (Dicyclomine Hcl*), 20 MG PO QID, (Reported) Docusate Sodium* (Colace*), 100 MG ORAL BID, (Reported) Lorazepam (Lorazepam), 2 MG PO BID, (Reported) Lorazepam* (Ativan*), 1 MG ORAL BEDTIME, (Reported) Pantoprazole* (Protonix*), 40 MG ORAL DAILY, (Reported) Promethazine Hcl* (Phenergan*), 40 MG ORAL BID, (Reported) Sucralfate* (Carafate*), 1 GM ORAL TID, (Reported) Scheduled PRN Dicyclomine Hcl* (Dicyclomine Hcl*), 10 MG ORAL QID PRN for Abdominal cramps Diphenhydramine Hcl* (Diphenhydramine Hcl*), 25 MG ORAL Q6H PRN for Itching, ( Reported) Ondansetron (Zofran), 4 MG ORAL Q6H PRN for Nausea & Vomiting, (Reported) Oxycodone Hcl/Acetaminophen 5-325* (Oxycodone-Acetaminophen 5-325*), 1 TAB ORAL Q6H PRN for For Pain, (Reported) Zolpidem Tartrate* (Zolpidem Tartrate*), 10 MG ORAL BEDTIME PRN for Insomnia, ( Reported) Miscellaneous Medications Noreth A-Et Estra/Fe Fumarate (Lo Loestrin Fe 1-10 Tablet), 1 EACH PO, (Reported ) Patient History Healthcare decision maker Resuscitation status Full Code Advanced Directive on File Review of Systems All Other Systems: negative except mentioned in HPI Physical Exam General Appearance: moderate distress Lines, tubes and drains: peripheral HEENT: normocephalic, atraumatic Respiratory/Chest: lungs clear, normal breath sounds Cardiovascular/Chest: normal rate Abdomen: normal bowel sounds, non tender, no organomegaly, other - R CVAT noted and slight L CVAT Extremities: normal range of motion, non-tender Skin Exam: normal pigmentation 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 normal Last 24 Hour Vital Signs Date Time Temp Pulse Resp B/P (MAP) Pulse Ox O2 Delivery O2 Flow Rate FiO2 11/01/19 12:09 97.7 11/01/19 12:00 97.7 84 18 140/101 (114) 100 11/01/19 09:00 Room Air 11/01/19 08:13 97.6 11/01/19 08:00 97.6 81 20 129/95 (106) 97 11/01/19 04:00 97.6 95 18 125/86 (99) 84 11/01/19 00:00 98.2 18 135/92 (106) 97 10/31/19 23:39 Room Air 10/31/19 19:15 97.9 98 18 145/89 (107) 98 10/31/19 19:10 99.0 98 16 128/81 99 Room Air 10/31/19 18:28 99.0 10/31/19 18:02 99.0 109 18 131/86 100 Room Air 10/31/19 17:45 100.2 10/31/19 15:45 102.4 105 16 116/90 100 Room Air 10/31/19 15:39 89 16 Room Air Intake and Output 10/31/19 11/01/19 19:00 07:00 Intake Total 2455 ml 212.5 ml Balance 2455 ml 212.5 ml Intake IV Total 2455 ml 212.5 ml # Voids 2 Laboratory Tests Test 10/31/19 15:05 10/31/19 16:15 11/01/19 05:30 Urine Color Pale yellow Urine Appearance Cloudy Urine pH 6 (4.5-8.0) Urine Specific [place] 1.010 (1.005-1.035) Urine Protein 2+ (NEGATIVE) H Urine Glucose (UA) Negative (NEGATIVE) Urine Ketones Negative (NEGATIVE) Urine Blood 3+ (NEGATIVE) H Urine Nitrite Positive (NEGATIVE) H Urine Bilirubin Negative (NEGATIVE) Urine Urobilinogen 1 MG/DL (0.0-1.0) H Urine Leukocyte Esterase 1+ (NEGATIVE) H Urine RBC 5-10 /HPF (0 - 2) H Urine WBC 20-30 /HPF (0 - 2) H Urine Squamous Epithelial Cells Many /LPF (NONE/OCC) H Urine Bacteria Many /HPF (NONE) H White Blood Count 10.7 K/UL (4.8-10.8) 8.2 K/UL (4.8-10.8) Red Blood Count 4.21 M/UL (4.20-5.40) 4.25 M/UL (4.20-5.40) Hemoglobin 11.2 G/DL (12.0-16.0) L 11.7 G/DL (12.0-16.0) L Hematocrit 35.4 % (37.0-47.0) L 35.3 % (37.0-47.0) L Mean Corpuscular Volume 84 FL (80-99) 83 FL (80-99) Mean Corpuscular Hemoglobin 26.5 PG (27.0-31.0) L 27.5 PG (27.0-31.0) Mean Corpuscular Hemoglobin Concent 31.6 G/DL (32.0-36.0) L 33.2 G/DL (32.0-36.0) Red Cell Distribution Width 13.7 % (11.6-14.8) 12.1 % (11.6-14.8) Platelet Count 306 K/UL (150-450) 306 K/UL (150-450) Mean Platelet Volume 6.7 FL (6.5-10.1) 6.3 FL (6.5-10.1) L Neutrophils (%) (Auto) 77.8 % (45.0-75.0) H % (45.0-75.0) Lymphocytes (%) (Auto) 13.6 % (20.0-45.0) L % (20.0-45.0) Monocytes (%) (Auto) 6.8 % (1.0-10.0) % (1.0-10.0) Eosinophils (%) (Auto) 0.3 % (0.0-3.0) % (0.0-3.0) Basophils (%) (Auto) 1.5 % (0.0-2.0) % (0.0-2.0) Prothrombin Time 9.6 SEC (9.30-11.50) Prothromb Time International Ratio 0.9 (0.9-1.1) Activated Partial Thromboplast Time 32 SEC (23-33) 34 SEC (23-33) H Sodium Level 138 MMOL/L (136-145) 141 MMOL/L (136-145) Potassium Level 3.5 MMOL/L (3.5-5.1) 3.3 MMOL/L (3.5-5.1) L Chloride Level 100 MMOL/L (98-107) 105 MMOL/L (98-107) Carbon Dioxide Level 25 MMOL/L (21-32) 22 MMOL/L (21-32) Anion Gap 13 mmol/L (5-15) 14 mmol/L (5-15) Blood Urea Nitrogen 7 mg/dL (7-18) 8 mg/dL (7-18) Creatinine 0.7 MG/DL (0.55-1.30) 0.6 MG/DL (0.55-1.30) Estimat Glomerular Filtration Rate > 60 mL/min (>60) > 60 mL/min (>60) Glucose Level 92 MG/DL (74-106) 146 MG/DL (74-106) H Lactic Acid Level 0.40 mmol/L (0.4-2.0) Calcium Level 8.8 MG/DL (8.5-10.1) 8.1 MG/DL (8.5-10.1) L Phosphorus Level 1.5 MG/DL (2.5-4.9) L Pending Magnesium Level 1.5 MG/DL (1.8-2.4) L Pending Total Bilirubin 0.3 MG/DL (0.2-1.0) 0.2 MG/DL (0.2-1.0) Aspartate Amino Transf (AST/SGOT) 19 U/L (15-37) 15 U/L (15-37) Alanine Aminotransferase (ALT/SGPT) 29 U/L (12-78) 25 U/L (12-78) Alkaline Phosphatase 81 U/L (46-116) 78 U/L (46-116) Total Creatine Kinase 120 U/L (26-308) Troponin I 0.000 ng/mL (0.000-0.056) Pro-B-Type Natriuretic Peptide 290 pg/mL (0-125) H Total Protein 7.5 G/DL (6.4-8.2) 7.0 G/DL (6.4-8.2) Albumin 3.4 G/DL (3.4-5.0) 2.9 G/DL (3.4-5.0) L Globulin 4.1 g/dL 4.1 g/dL Albumin/Globulin Ratio 0.8 (1.0-2.7) L 0.7 (1.0-2.7) L Lipase 47 U/L (73-393) L 35 U/L (73-393) L Human Chorionic Gonadotropin, Quant 1 mIU/mL (1-6) Differential Total Cells Counted 100 Neutrophils % (Manual) 89 % (45-75) H Lymphocytes % (Manual) 10 % (20-45) L Monocytes % (Manual) 1 % (1-10) Eosinophils % (Manual) 0 % (0-3) Basophils % (Manual) 0 % (0-2) Band Neutrophils 0 % (0-8) Platelet Estimate Adequate Platelet Morphology Normal Hypochromasia 1+ Amylase Level 24 U/L (25-115) L Thyroid Stimulating Hormone (TSH) 0.149 uiU/mL (0.358-3.740) Microbiology Date/Time Source Procedure Growth Status 10/31/19 15:00 Nasal Nares - Final Complete 10/31/19 15:00 Nasal Nares - Final Complete 10/31/19 15:05 Urine,Clean Catch Urine Culture - Preliminary Gram Negative Bacillus 1 Resulted Height (Feet): 5 Height (Inches): 2.00 Weight (Pounds): 175 Medications Current Medications Medications (Trade) Dose Ordered Sig/Doug Route PRN Reason Start Time Stop Time Status Last Admin Dose Admin Acetaminophen (Tylenol) 650 mg Q4H PRN ORAL fever 10/31/19 19:30 11/30/19 19:29 Cyclobenzaprine HCl (Flexeril) 10 mg THREE TIMES A DAY ORAL 11/01/19 09:00 12/01/19 08:59 Dextrose (Dextrose 50%) 25 ml Q30M PRN IV Hypoglycemia 10/31/19 19:30 11/30/19 19:29 Dextrose (Dextrose 50%) 50 ml Q30M PRN IV Hypoglycemia 10/31/19 19:30 11/30/19 19:29 Dextrose/Sodium Chloride 1,000 ml @ 75 mls/hr [id number] IV 10/31/19 19:25 11/30/19 19:24 10/31/19 22:22 Diphenhydramine HCl (Benadryl) 25 mg Q6H PRN ORAL Itching/Pruritis 10/31/19 19:30 11/30/19 19:29 Hydromorphone HCl (Dilaudid) 1 mg Q3H PRN IVP pain scale 6-10 11/01/19 10:45 11/08/19 10:44 11/01/19 11:39 Iohexol (OMNIPAQUE-300 100ml) 100 ml NOW PRN INJ Radiology Procedure 10/31/19 16:45 11/02/19 16:40 Lorazepam (Ativan) 1 mg Q6H PRN ORAL For Anxiety 11/01/19 09:45 11/08/19 09:44 11/01/19 10:34 Nitroglycerin (Ntg) 0.4 mg Q5M X 3 DOSES PRN SL Prn Chest Pain 10/31/19 19:30 11/30/19 19:29 Ondansetron HCl (Zofran) 4 mg Q4H PRN IVP Nausea & Vomiting 11/01/19 09:45 12/01/19 09:44 11/01/19 10:34 Pantoprazole (Protonix) 40 mg DAILY IVP 11/01/19 09:00 12/01/19 08:59 11/01/19 09:21 Piperacillin Sod/ Tazobactam Sod 3.375 gm/Sodium Chloride 110 ml @ 27.5 mls/hr EVERY 8 HOURS IVPB 10/31/19 22:00 11/05/19 21:59 11/01/19 05:09 Polyethylene Glycol (Miralax) 17 gm HSPRN PRN ORAL Constipation 10/31/19 19:30 11/30/19 19:29 Sucralfate (Carafate) 1 gm TID ORAL 11/01/19 09:00 12/01/19 08:59 Temazepam (Restoril) 15 mg HSPRN PRN ORAL Insomnia 10/31/19 19:30 11/07/19 19:29 Tramadol HCl (Ultram) 50 mg Q6H PRN ORAL Pain Scale 1-5 11/01/19 11:00 11/08/19 10:59 Assessment/Plan Assessment/Plan: 48-year-old female: 1. Pyelonephritis Urine culture sigh Gram Negative Bacilli Continue Zosyn and follow up culture Leukocytosis improving from 10.[address] reviewed ID consult requested NPO except ice chips today Trial of clear diet in AM IVF 2. Electrolyte derangement with hypokalemia, hypomagnesemia and hypokalemia on admission Repeat Mag and Phos today Replete K ( 3.3 today and patient refused PO replacement) 3. Morbid obesity Dietary education 4. DVT and GI ppx 5. FULL CODE. Mimi Draper MD Nov 01, 2019 14:57
[2019-11-01 15:01] LABS: PHOSPHORUS 2.9 MG/DL (2.5-4.9)
[2019-11-01 16:00] VITALS: BP 148/100
--- NOTE | 2019-11-01 18:00 | NUR ---
NURSE NOTES: NEW PAIN MED ORDER RECEIVED TODAY. PAIN MORE CONTROLLED WITH INCREASED DILAUDID GIVEN. VSS. AFEBRILE.
--- NOTE | 2019-11-01 19:49 | NUR ---
HAND-OFF: Report given to ARUN QUINTERO RN.
--- NOTE | 2019-11-01 19:50 | NUR ---
NURSE NOTES: Pt. received from CORBY Whelan. Pt. AAOx4, on room air, breathing even and unlabored, no complaints of pain at this time. Partner is at the beside. IV left AC 20g running D51/2NS, intact and patent. Bed is low and locked, side rails x2 up, and call light is in reach. Will continue to monitor.
[2019-11-01 20:00] VITALS: BP 138/78
--- NOTE | 2019-11-01 20:15 | Consultation ---
DATE OF CONSULTATION: 11/01/2019 INFECTIOUS DISEASE CONSULTATION CONSULTING PHYSICIAN: Michael Lin M.D. REFERRING PHYSICIAN: Frankie Good M.D. REASON FOR CONSULTATION: Evaluation of the patient for UTI, fever, and antibiotic management. HISTORY OF PRESENT ILLNESS: The patient is a 48-year-old female who was admitted to this medical center with chief complaint of difficulty urination associated with burning. The patient also had fever and chills. He was admitted with impression of urinary tract infection. CT scan also showed evidence of pyelonephritis, and infectious disease consultation has been requested for further evaluation of the patient and antibiotic management. PAST MEDICAL HISTORY: Significant for: 1. Hyperlipidemia. 2. Diverticulitis. 3. Hysterectomy. 4. History of . ALLERGIES: Morphine, metoclopramide, NSAID, and shellfish. FAMILY HISTORY: Noncontributing. MEDICATIONS: The patient is on IV Zosyn. SOCIAL HISTORY: No history of alcohol or drug abuse. PHYSICAL EXAMINATION: VITAL SIGNS: T-max 102.4, pulse 86, respiratory rate 18, and blood pressure 129/95. HEENT: No pale conjunctivae. No icterus. NECK: No lymphadenopathy. CHEST: Coarse breathing sounds. HEART: S1, S2. ABDOMEN: Soft, nontender. EXTREMITIES: No cyanosis at this time. NEUROLOGIC: Awake and alert. LABORATORY DATA: White blood cell 8, hemoglobin 11, and platelets 206. UA, 20 to 30 white blood cells. BUN 8, creatinine 0.6. ALT, AST, and alkaline phosphatase are unremarkable. Urine culture is growing gram-negative rods. ASSESSMENT: The patient is a 48-year-old female with: 1. Fever. 2. Normal white blood cells. 3. UTI/pyelonephritis. PLAN: 1. We will put the patient on IV Zosyn. 2. Monitor CBC. 3. Monitor BMP. 4. Monitor cultures (blood, urine). 5. We will follow the patient's clinical course and laboratories and based on those, we will do further recommendations. Michael Lin M.D. DR: ADEBAYO JOB#: [id number] CC:
[2019-11-02] VITALS: BP 114/66
[2019-11-02] MEDS: LORazepam 1mg tab ORAL PRN ×2 (00:04→13:58)
[2019-11-02] MEDS: HYDROmorphone 1mg/ml Carpuject IVP PRN ×8 (00:34→23:16)
[2019-11-02 04:00] VITALS: BP 112/73
[2019-11-02] MEDS: Piperacillin/Tazobactam 3.375 GM in NS 110 ML IVPB SCH ×3 (05:34→21:26)
[2019-11-02 07:26] LABS: BASOPHILS % (AUTO) 0.4 % (0.0-2.0); EOSINOPHILS % (AUTO) 0.1 % (0.0-3.0); HEMATOCRIT 33.6 % (37.0-47.0); HEMOGLOBIN 11.2 G/DL (12.0-16.0); LYMPHOCYTES % (AUTO) 21.7 % (20.0-45.0); MEAN CORPUSCULAR VOLUME 83 FL (80-99); MONOCYTES % (AUTO) 7.2 % (1.0-10.0); NEUTROPHILS % (AUTO) 70.6 % (45.0-75.0); PLATELET COUNT 320 K/UL (150-450); RED BLOOD COUNT 4.06 M/UL (4.20-5.40); RED CELL DISTRIBUTION WIDTH 11.9 % (11.6-14.8); WHITE BLOOD COUNT 7.9 K/UL (4.8-10.8)
--- NOTE | 2019-11-02 07:30 | NUR ---
NURSE NOTES: AWAKE/ALERT.PAIN SCALE 7/10. IN NO ACUTE DISTRESS.
[2019-11-02 08:00] VITALS: BP 140/90
--- NOTE | 2019-11-02 08:09 | NUR ---
HAND-OFF: Report given to CORBY Mehta.
[2019-11-02 08:14] LABS: ALANINE AMINOTRANSFERASE 25 U/L (12-78); ALBUMIN/GLOBULIN RATIO 0.8 (1.0-2.7); ALKALINE PHOSPHATASE 68 U/L (46-116); ANION GAP 11 mmol/L (5-15); ASPARTATE AMINO TRANSFERASE 19 U/L (15-37); BILIRUBIN,TOTAL 0.2 MG/DL (0.2-1.0); BLOOD UREA NITROGEN 7 mg/dL (7-18); CALCIUM 8.4 MG/DL (8.5-10.1); CARBON DIOXIDE 25 MMOL/L (21-32); CHLORIDE 106 MMOL/L (98-107); CREATININE 0.6 MG/DL (0.55-1.30); PHOSPHORUS 1.9 MG/DL (2.5-4.9); POTASSIUM 3.1 MMOL/L (3.5-5.1); SODIUM 142 MMOL/L (136-145)
[2019-11-02] MEDS: Pantoprazole Inj IVP SCH (09:21)
[2019-11-02] MEDS: Sucralfate 1gm tab ORAL SCH ×3 (09:21→17:49)
[2019-11-02] MEDS: Cyclobenzaprine 10mg Tab ORAL SCH ×3 (09:21→17:49)
--- NOTE | 2019-11-02 09:56 | Infectious Diseases Prog Note ---
Assessment/Plan Assessment/Plan ASSESSMENT: The patient is a 48-year-old female with: Fever, sp Normal white blood cells. UTI/pyelonephritis. - UCx : EColi Hyperlipidemia. Diverticulitis. Hysterectomy. History of . PLAN: cont pt on IV Zosyn # 2 , ok to dC pt on Levaquin x 1 wk ( Rx in chart ) Monitor CBC Monitor BMP Monitor cultures (blood,) Subjective Allergies: Coded Allergies: METOCLOPRAMIDE (Verified Allergy, Severe, 07/23/15) NSAIDS (NON-STEROIDAL ANTI-INFLAMMA (Verified Allergy, Severe, 07/23/15) MORPHINE (Verified Allergy, Intermediate, 07/23/15) PROCHLORPERAZINE (Verified Allergy, Intermediate, Hives, 07/23/15) SHELLFISH DERIVED (Verified Allergy, Unknown, 08/19/19) Subjective fever improving Objective Vital Signs Last 24 Hour Vital Signs Date Time Temp Pulse Resp B/P (MAP) Pulse Ox O2 Delivery O2 Flow Rate FiO2 11/02/19 08:00 98.1 84 18 140/90 (107) 99 11/02/19 04:00 98.8 89 21 112/73 (86) 97 11/02/19 00:00 98.2 92 20 114/66 (82) 100 11/01/19 21:00 Room Air 11/01/19 20:00 98.0 90 20 138/78 (98) 100 11/01/19 18:27 98.9 11/01/19 16:00 98.9 87 20 148/100 (116) 98 11/01/19 12:00 97.7 84 18 140/101 (114) 100 Height (Feet): 5 Height (Inches): 2.00 Weight (Pounds): 175 HEENT: anicteric Respiratory/Chest: no respiratory distress Cardiovascular: regularly irregular Abdomen: no organomegaly Microbiology Date/Time Source Procedure Growth Status 10/31/19 16:15 Blood Blood Culture - Preliminary NO GROWTH AFTER 24 HOURS Resulted 10/31/19 15:55 Blood Blood Culture - Preliminary NO GROWTH AFTER 24 HOURS Resulted 10/31/19 15:00 Nasal Nares - Final Complete 10/31/19 15:00 Nasal Nares - Final Complete 10/31/19 15:05 Urine,Clean Catch Urine Culture - Final Escherichia Coli Complete Laboratory Tests Test 11/02/19 04:40 White Blood Count 7.9 K/UL (4.8-10.8) Red Blood Count 4.06 M/UL (4.20-5.40) L Hemoglobin 11.2 G/DL (12.0-16.0) L Hematocrit 33.6 % (37.0-47.0) L Mean Corpuscular Volume 83 FL (80-99) Mean Corpuscular Hemoglobin 27.7 PG (27.0-31.0) Mean Corpuscular Hemoglobin Concent 33.4 G/DL (32.0-36.0) Red Cell Distribution Width 11.9 % (11.6-14.8) Platelet Count 320 K/UL (150-450) Mean Platelet Volume 5.8 FL (6.5-10.1) L Neutrophils (%) (Auto) 70.6 % (45.0-75.0) Lymphocytes (%) (Auto) 21.7 % (20.0-45.0) Monocytes (%) (Auto) 7.2 % (1.0-10.0) Eosinophils (%) (Auto) 0.1 % (0.0-3.0) Basophils (%) (Auto) 0.4 % (0.0-2.0) Sodium Level 142 MMOL/L (136-145) Potassium Level 3.1 MMOL/L (3.5-5.1) L Chloride Level 106 MMOL/L (98-107) Carbon Dioxide Level 25 MMOL/L (21-32) Anion Gap 11 mmol/L (5-15) Blood Urea Nitrogen 7 mg/dL (7-18) Creatinine 0.6 MG/DL (0.55-1.30) Estimat Glomerular Filtration Rate > 60 mL/min (>60) Glucose Level 126 MG/DL (74-106) H Calcium Level 8.4 MG/DL (8.5-10.1) L Phosphorus Level 1.9 MG/DL (2.5-4.9) L Magnesium Level 2.4 MG/DL (1.8-2.4) Total Bilirubin 0.2 MG/DL (0.2-1.0) Aspartate Amino Transf (AST/SGOT) 19 U/L (15-37) Alanine Aminotransferase (ALT/SGPT) 25 U/L (12-78) Alkaline Phosphatase 68 U/L (46-116) Total Protein 6.9 G/DL (6.4-8.2) Albumin 3.0 G/DL (3.4-5.0) L Globulin 3.9 g/dL Albumin/Globulin Ratio 0.8 (1.0-2.7) L Current Medications Medications (Trade) Dose Ordered Sig/Doug Route PRN Reason Start Time Stop Time Status Last Admin Dose Admin Acetaminophen (Tylenol) 650 mg Q4H PRN ORAL fever 10/31/19 19:30 11/30/19 19:29 Cyclobenzaprine HCl (Flexeril) 10 mg THREE TIMES A DAY ORAL 11/01/19 09:00 12/01/19 08:59 11/02/19 09:21 Dextrose (Dextrose 50%) 25 ml Q30M PRN IV Hypoglycemia 10/31/19 19:30 11/30/19 19:29 Dextrose (Dextrose 50%) 50 ml Q30M PRN IV Hypoglycemia 10/31/19 19:30 11/30/19 19:29 Dextrose/Sodium Chloride 1,000 ml @ 75 mls/hr [id number] IV 10/31/19 19:25 11/30/19 19:24 11/01/19 22:30 Diphenhydramine HCl (Benadryl) 25 mg Q6H PRN ORAL Itching/Pruritis 10/31/19 19:30 11/30/19 19:29 Hydromorphone HCl (Dilaudid) 1 mg Q3H PRN IVP pain scale 6-10 11/01/19 10:45 11/08/19 10:44 11/02/19 06:51 Iohexol (OMNIPAQUE-300 100ml) 100 ml NOW PRN INJ Radiology Procedure 10/31/19 16:45 11/02/19 16:40 Lorazepam (Ativan) 1 mg Q6H PRN ORAL For Anxiety 11/01/19 09:45 11/08/19 09:44 11/02/19 00:04 Nitroglycerin (Ntg) 0.4 mg Q5M X 3 DOSES PRN SL Prn Chest Pain 10/31/19 19:30 11/30/19 19:29 Ondansetron HCl (Zofran) 4 mg Q4H PRN IVP Nausea & Vomiting 11/01/19 09:45 12/01/19 09:44 11/02/19 06:51 Pantoprazole (Protonix) 40 mg DAILY IVP 11/01/19 09:00 12/01/19 08:59 11/02/19 09:21 Piperacillin Sod/ Tazobactam Sod 3.375 gm/Sodium Chloride 110 ml @ 27.5 mls/hr EVERY 8 HOURS IVPB 10/31/19 22:00 11/05/19 21:59 11/02/19 05:34 Polyethylene Glycol (Miralax) 17 gm HSPRN PRN ORAL Constipation 10/31/19 19:30 11/30/19 19:29 Sucralfate (Carafate) 1 gm TID ORAL 11/01/19 09:00 12/01/19 08:59 11/02/19 09:21 Temazepam (Restoril) 15 mg HSPRN PRN ORAL Insomnia 10/31/19 19:30 11/07/19 19:29 Tramadol HCl (Ultram) 50 mg Q6H PRN ORAL Pain Scale 1-5 11/01/19 11:00 11/08/19 10:59 Michael Lin MD Nov 02, 2019 09:56
--- NOTE | 2019-11-02 10:28 | NUR ---
NURSE NOTES: k 3.1 DR WATERMAN CALLED LEFT MESSAGE TO RETURN CALL.
[2019-11-02] MEDS: D5 1/2NS 1,000 ML IV SCH ×2 (11:25→17:50)
[2019-11-02] MEDS ORDERED: D5 1/2NS 1000ml IV ONE (11:58)
[2019-11-02] MEDS ORDERED: Tubing IV Secondary IV ONE (11:58)
[2019-11-02 12:00] VITALS: BP 133/80
--- NOTE | 2019-11-02 14:28 | General Progress Note ---
Assessment/Plan Assessment/Plan: 48-year-old female: 1. Pyelonephritis Urine culture E. Coli Continue antibiotics per Dr. Lin from ID CT reviewed Advance diet and monitor progress. IVF 2. Electrolyte derangement with hypokalemia, hypomagnesemia and hypokalemia on admission Improved. 3. Morbid obesity Dietary education 4. DVT and GI ppx 5. FULL CODE. 6. Disposition: Home in AM if tolerates diet. Subjective Date patient seen: Nov 02, 2019 Time patient seen: 12:30 ROS Limited/Unobtainable: No Genitourinary: Reports: flank pain Allergies: Coded Allergies: METOCLOPRAMIDE (Verified Allergy, Severe, 07/23/15) NSAIDS (NON-STEROIDAL ANTI-INFLAMMA (Verified Allergy, Severe, 07/23/15) MORPHINE (Verified Allergy, Intermediate, 07/23/15) PROCHLORPERAZINE (Verified Allergy, Intermediate, Hives, 07/23/15) SHELLFISH DERIVED (Verified Allergy, Unknown, 08/19/19) Subjective Feels better today and CVAT is still present. She is just taking small amounts of diet today. Objective Last 24 Hour Vital Signs Date Time Temp Pulse Resp B/P (MAP) Pulse Ox O2 Delivery O2 Flow Rate FiO2 11/02/19 13:31 98.1 11/02/19 12:00 98.1 82 20 133/80 (97) 99 11/02/19 09:00 Room Air 11/02/19 08:00 98.1 84 18 140/90 (107) 99 11/02/19 04:00 98.8 89 21 112/73 (86) 97 11/02/19 00:00 98.2 92 20 114/66 (82) 100 11/01/19 21:00 Room Air 11/01/19 20:00 98.0 90 20 138/78 (98) 100 11/01/19 16:00 98.9 87 20 148/100 (116) 98 Intake and Output 11/01/19 11/02/19 19:00 07:00 Intake Total 990.0 ml 587.5 ml Balance 990.0 ml 587.5 ml Intake IV Total 990.0 ml 587.5 ml # Voids 4 # Bowel Movements 1 1 Laboratory Tests 11/02/19 04:40: White Blood Count 7.9, Red Blood Count 4.06L, Hemoglobin 11.2L, Hematocrit 33.6L , Mean Corpuscular Volume 83, Mean Corpuscular Hemoglobin 27.7, Mean Corpuscular Hemoglobin Concent 33.4, Red Cell Distribution Width 11.9, Platelet Count 320, Mean Platelet Volume 5.8L, Neutrophils (%) (Auto) 70.6, Lymphocytes ( %) (Auto) 21.7, Monocytes (%) (Auto) 7.2, Eosinophils (%) (Auto) 0.1, Basophils (%) (Auto) 0.4, Sodium Level 142, Potassium Level 3.1L, Chloride Level 106, Carbon Dioxide Level 25, Anion Gap 11, Blood Urea Nitrogen 7, Creatinine 0.6, Estimat Glomerular Filtration Rate > 60, Glucose Level 126H, Calcium Level 8.4L , Phosphorus Level 1.9L, Magnesium Level 2.4, Total Bilirubin 0.2, Aspartate Amino Transf (AST/SGOT) 19, Alanine Aminotransferase (ALT/SGPT) 25, Alkaline Phosphatase 68, Total Protein 6.9, Albumin 3.0L, Globulin 3.9, Albumin/Globulin Ratio 0.8L Height (Feet): 5 Height (Inches): 2.00 Weight (Pounds): 175 General Appearance: WD/WN EENT: PERRL/EOMI Neck: non-tender Cardiovascular: normal peripheral pulses Abdomen: non tender 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
[2019-11-02 16:00] VITALS: BP 130/84
--- NOTE | 2019-11-02 19:00 | NUR ---
NURSE NOTES: AWAKE/ALERT. IN NO DISTRESS.
--- NOTE | 2019-11-02 19:32 | NUR ---
HAND-OFF: Report given to S MARIO RN.
--- NOTE | 2019-11-02 19:34 | NUR ---
NURSE NOTES: Received report from Janine TAVAREZ. Rounding is done with outgoing nurse. Patient is in bed, a/o x4, and able to known her needs. is at bedside. Patient is c/o pain 7/10 and will give medication as ordered. IV site is intact and IV fluid is running. Bed is on alarm, locked, and lowest position. Call light within reach. Will continue to monitor.
[2019-11-02 20:00] VITALS: BP 124/82
[2019-11-03] VITALS (7 sets, daily range): BP systolic 133–159; BP diastolic 73–95
[2019-11-03] MEDS: D5 1/2NS 1,000 ML IV SCH ×2 (00:29→14:05)
[2019-11-03] MEDS: HYDROmorphone 1mg/ml Carpuject IVP PRN ×3 (03:28→09:45)
[2019-11-03] MEDS: Piperacillin/Tazobactam 3.375 GM in NS 110 ML IVPB SCH ×3 (05:53→22:17)
--- NOTE | 2019-11-03 06:52 | NUR ---
NURSE NOTES: IV site is not working. Tried to 2 times insertion of IV and unsuccessful . Hold IV medication due to Iv site. Will endorse to morning nurse.
--- NOTE | 2019-11-03 07:30 | NUR ---
NURSE NOTES: AWAKE/ALERT. PAIN SCALE 6/10. IN NO ACUTE DISTRESS
--- NOTE | 2019-11-03 07:40 | NUR ---
HAND-OFF: Report given to Janine TAVAREZ. Patient in stable condition.
[2019-11-03 08:29] LABS: BASOPHILS % (AUTO) 1.8 % (0.0-2.0); EOSINOPHILS % (AUTO) 0.8 % (0.0-3.0); HEMATOCRIT 32.6 % (37.0-47.0); HEMOGLOBIN 10.8 G/DL (12.0-16.0); LYMPHOCYTES % (AUTO) 34.9 % (20.0-45.0); MEAN CORPUSCULAR VOLUME 82 FL (80-99); MONOCYTES % (AUTO) 10.6 % (1.0-10.0); NEUTROPHILS % (AUTO) 51.9 % (45.0-75.0); PLATELET COUNT 319 K/UL (150-450); RED BLOOD COUNT 3.96 M/UL (4.20-5.40); WHITE BLOOD COUNT 5.5 K/UL (4.8-10.8)
--- NOTE | 2019-11-03 08:30 | NUR ---
NURSE NOTES: TRIED SEVERAL TIMES WITH 3-4 NURSES TO RESTAR NEW IV ACCESS BUT NO LUCK.
[2019-11-03 08:44] LABS: ANION GAP 10 mmol/L (5-15); BLOOD UREA NITROGEN 6 mg/dL (7-18); CALCIUM 8.2 MG/DL (8.5-10.1); CARBON DIOXIDE 26 MMOL/L (21-32); CHLORIDE 105 MMOL/L (98-107); CREATININE 0.6 MG/DL (0.55-1.30); POTASSIUM 3.4 MMOL/L (3.5-5.1); SODIUM 141 MMOL/L (136-145)
[2019-11-03] MEDS: Cyclobenzaprine 10mg Tab ORAL SCH ×3 (09:30→18:18)
[2019-11-03] MEDS: Sucralfate 1gm tab ORAL SCH ×3 (09:30→18:18)
[2019-11-03] MEDS: Pantoprazole Inj IVP SCH (09:49)
[2019-11-03] MEDS ORDERED: HYDROcodone/Acetamin 5/325 tab ORAL PRN (13:54)
[2019-11-03] MEDS ORDERED: Ketorolac 30mg Inj IV PRN (13:55)
--- NOTE | 2019-11-03 13:56 | General Progress Note ---
Assessment/Plan Status: not improved Assessment/Plan: 48-year-old female: 1. Pyelonephritis Urine culture E. Coli Continue antibiotics per Dr. Lin from ID. Reccomends Levaquin x 7 days- Rx placed in the chart. CT reviewed Advance diet and monitor progress. IVF 2. Electrolyte derangement with hypokalemia, hypomagnesemia and hypokalemia on admission Improved. 3. Morbid obesity Dietary education 4. DVT and GI ppx 5. Diarrhea Stool studies, rule out c diff vs other vs antibiotic related diarrhea. Supportive care. 6. Emesis ? opiate induced. Will dc Dilaudid and trial of Toradol IV and [place] PO only. 7. FULL CODE. 8. Disposition: Home in AM if tolerates diet and emesis improves. Subjective Date patient seen: Nov 03, 2019 Time patient seen: 14:00 Allergies: Coded Allergies: METOCLOPRAMIDE (Verified Allergy, Severe, 07/23/15) NSAIDS (NON-STEROIDAL ANTI-INFLAMMA (Verified Allergy, Severe, 07/23/15) MORPHINE (Verified Allergy, Intermediate, 07/23/15) PROCHLORPERAZINE (Verified Allergy, Intermediate, Hives, 07/23/15) SHELLFISH DERIVED (Verified Allergy, Unknown, 08/19/19) Subjective Tolerated diet today and developed liquid stool x 3. She wants to go home and had emesis at 1400. recommend to stay in the hospital until she is able to tolerate diet. Objective Last 24 Hour Vital Signs Date Time Temp Pulse Resp B/P (MAP) Pulse Ox O2 Delivery O2 Flow Rate FiO2 11/03/19 12:00 98.1 74 22 141/95 (110) 98 11/03/19 10:15 98.4 11/03/19 09:00 Room Air 11/03/19 08:00 98.4 75 20 138/73 (94) 97 11/03/19 04:00 98.4 78 19 133/83 (100) 97 11/03/19 00:00 98.3 80 19 134/83 (100) 97 11/02/19 21:00 Room Air 11/02/19 20:00 95.9 87 18 124/82 (96) 98 11/02/19 16:00 98.4 82 18 130/84 (99) 99 Intake and Output 11/02/19 11/03/19 19:00 07:00 Intake Total 1135 ml 660.0 ml Balance 1135 ml 660.0 ml Intake Oral 500 ml 400 ml IV Total 635 ml 260.0 ml # Voids 2 # Bowel Movements 1 Laboratory Tests 11/03/19 07:46: White Blood Count 5.5, Red Blood Count 3.96L, Hemoglobin 10.8L, Hematocrit 32.6L , Mean Corpuscular Volume 82, Mean Corpuscular Hemoglobin 27.4, Mean Corpuscular Hemoglobin Concent 33.2, Red Cell Distribution Width 12.0, Platelet Count 319, Mean Platelet Volume 5.9L, Neutrophils (%) (Auto) 51.9, Lymphocytes ( %) (Auto) 34.9, Monocytes (%) (Auto) 10.6H, Eosinophils (%) (Auto) 0.8, Basophils (%) (Auto) 1.8, Sodium Level 141, Potassium Level 3.4L, Chloride Level 105, Carbon Dioxide Level 26, Anion Gap 10, Blood Urea Nitrogen 6L, Creatinine 0.6, Estimat Glomerular Filtration Rate > 60, Glucose Level 104, Calcium Level 8.2L, Magnesium Level 2.0 Height (Feet): 5 Height (Inches): 2.00 Weight (Pounds): 175 General Appearance: moderate distress Cardiovascular: normal peripheral pulses, normal rate Respiratory/Chest: lungs clear Abdomen: normal bowel sounds, non tender Neurologic: professional architect II-XII grossly normal Mimi Draper MD Nov 03, 2019 13:56
[2019-11-03] MEDS ORDERED: Hydromorphone 0.5mg/0.5ml inj IVP PRN (14:09)
[2019-11-03] MEDS: Hydromorphone 0.5mg/0.5ml inj IVP PRN ×3 (14:21→22:18)
--- NOTE | 2019-11-03 19:38 | NUR ---
NURSE NOTES: AWAKE/ALERT. IN NO ACUTE DISTRESS.
--- NOTE | 2019-11-03 19:39 | NUR ---
HAND-OFF: Report given to A MENDOZA TAVAREZ.
[2019-11-03] MEDS: LORazepam 1mg tab ORAL PRN (20:39)
[2019-11-04] VITALS: BP 130/86
[2019-11-04] MEDS: Hydromorphone 0.5mg/0.5ml inj IVP PRN ×3 (02:31→10:37)
[2019-11-04 04:00] VITALS: BP 153/97
[2019-11-04] MEDS: D5 1/2NS 1,000 ML IV SCH (05:40)
[2019-11-04] MEDS: Piperacillin/Tazobactam 3.375 GM in NS 110 ML IVPB SCH ×3 (05:40→13:49)
[2019-11-04 07:30] LABS: ANION GAP 9 mmol/L (5-15); BLOOD UREA NITROGEN 6 mg/dL (7-18); CALCIUM 8.9 MG/DL (8.5-10.1); CARBON DIOXIDE 27 MMOL/L (21-32); CHLORIDE 105 MMOL/L (98-107); CREATININE 0.5 MG/DL (0.55-1.30); PHOSPHORUS 2.8 MG/DL (2.5-4.9); POTASSIUM 3.9 MMOL/L (3.5-5.1); SODIUM 141 MMOL/L (136-145)
[2019-11-04 07:37] LABS: BASOPHILS % (AUTO) 1.1 % (0.0-2.0); EOSINOPHILS % (AUTO) 1.4 % (0.0-3.0); HEMATOCRIT 35.9 % (37.0-47.0); HEMOGLOBIN 12.2 G/DL (12.0-16.0); LYMPHOCYTES % (AUTO) 40.1 % (20.0-45.0); MEAN CORPUSCULAR VOLUME 81 FL (80-99); MONOCYTES % (AUTO) 9.3 % (1.0-10.0); NEUTROPHILS % (AUTO) 48.1 % (45.0-75.0); PLATELET COUNT 351 K/UL (150-450); RED BLOOD COUNT 4.44 M/UL (4.20-5.40); RED CELL DISTRIBUTION WIDTH 11.7 % (11.6-14.8); WHITE BLOOD COUNT 6.1 K/UL (4.8-10.8)
[2019-11-04 08:35] VITALS: BP 162/101
[2019-11-04] MEDS: Cyclobenzaprine 10mg Tab ORAL SCH ×2 (09:20→13:47)
[2019-11-04] MEDS: Sucralfate 1gm tab ORAL SCH (09:20)
[2019-11-04] MEDS: Pantoprazole Inj IVP SCH (09:21)
--- NOTE | 2019-11-04 11:31 | NUR ---
NURSE NOTES: PT AWAKE ALERT, NO DISTRESS. NO C/O PAIN. CALL LIGHT WITHIN REACH. BED IN LOWEST POSITION, LOCKED. WILL MONITOR.
[2019-11-04 11:42] VITALS: BP 140/90
[2019-11-04] MEDS: LORazepam 1mg tab ORAL PRN (11:47)
--- NOTE | 2019-11-04 12:11 | Pulmonology Progress Note ---
Assessment/Plan Problems: (1) Pyelonephritis (2) Diarrhea (3) Gastroparesis Assessment/Plan pt improving but she has severe diarrhea, C.diff negative GI to see the patient, afterwards she can be discharged. Subjective ROS Limited/Unobtainable: No Constitutional: Reports: no symptoms HEENT: Repors: no symptoms Respiratory: Reports: no symptoms Allergies: Coded Allergies: METOCLOPRAMIDE (Verified Allergy, Severe, 07/23/15) NSAIDS (NON-STEROIDAL ANTI-INFLAMMA (Verified Allergy, Severe, 07/23/15) MORPHINE (Verified Allergy, Intermediate, 07/23/15) PROCHLORPERAZINE (Verified Allergy, Intermediate, Hives, 07/23/15) SHELLFISH DERIVED (Verified Allergy, Unknown, 08/19/19) Objective Last 24 Hour Vital Signs Date Time Temp Pulse Resp B/P (MAP) Pulse Ox O2 Delivery O2 Flow Rate FiO2 11/04/19 11:42 97.4 63 20 140/90 (107) 98 11/04/19 11:07 97.4 11/04/19 11:00 63 140/90 11/04/19 09:00 Room Air 11/04/19 08:35 97.4 63 20 162/101 (121) 98 11/04/19 04:00 97.4 71 20 153/97 (115) 98 11/04/19 00:00 97.7 77 20 130/86 (101) 98 11/03/19 21:00 Room Air 11/03/19 21:00 97.9 71 20 159/91 (113) 97 11/03/19 20:00 97.9 71 20 159/91 (113) 97 11/03/19 16:00 98.4 80 20 140/85 (103) 98 Intake and Output 11/03/19 11/04/19 19:00 07:00 Intake Total 730 ml 1035.0 ml Output Total 50 ml Balance 680 ml 1035.0 ml Intake Oral 320 ml IV Total 410 ml 635.0 ml Other 400 ml Output Emesis 50 ml # Voids 2 5 # Bowel Movements 1 5 General Appearance: WD/WN HEENT: normocephalic, atraumatic Respiratory/Chest: chest wall non-tender, lungs clear Breasts: no masses Cardiovascular: normal peripheral pulses Abdomen: normal bowel sounds, soft, non tender Genitourinary: normal external genitalia Extremities: no clubbing Skin: no ulcers Neurologic/Psychiatric: screening nurse II-XII grossly normal Lymphatic: no neck adenopathy Microbiology Date/Time Source Procedure Growth Status 11/03/19 14:00 Stool Clostridium difficile Toxin Assay - Final Complete Laboratory Tests 11/04/19 05:40: White Blood Count 6.1, Red Blood Count 4.44, Hemoglobin 12.2, Hematocrit 35.9L, Mean Corpuscular Volume 81, Mean Corpuscular Hemoglobin 27.4, Mean Corpuscular Hemoglobin Concent 33.9, Red Cell Distribution Width 11.7, Platelet Count 351, Mean Platelet Volume 5.1L, Neutrophils (%) (Auto) 48.1, Lymphocytes (%) (Auto) 40.1, Monocytes (%) (Auto) 9.3, Eosinophils (%) (Auto) 1.4, Basophils (%) (Auto ) 1.1, Sodium Level 141, Potassium Level 3.9, Chloride Level 105, Carbon Dioxide Level 27, Anion Gap 9, Blood Urea Nitrogen 6L, Creatinine 0.5L, Estimat Glomerular Filtration Rate > 60, Glucose Level 98, Calcium Level 8.9, Phosphorus Level 2.8, Magnesium Level 1.9 Current Medications Medications (Trade) Dose Ordered Sig/Doug Route PRN Reason Start Time Stop Time Status Last Admin Dose Admin Acetaminophen (Tylenol) 650 mg Q4H PRN ORAL fever 10/31/19 19:30 11/30/19 19:29 Acetaminophen/ Hydrocodone Bitart ([place] 5/325) 1 tab Q4H PRN ORAL Moderate Pain (Pain Scale 4-6) 11/03/19 13:54 11/10/19 13:53 Amlodipine Besylate (Norvasc) 5 mg DAILY ORAL 11/04/19 11:00 12/04/19 10:59 Cyclobenzaprine HCl (Flexeril) 10 mg THREE TIMES A DAY ORAL 11/01/19 09:00 12/01/19 08:59 11/04/19 09:20 Dextrose (Dextrose 50%) 25 ml Q30M PRN IV Hypoglycemia 10/31/19 19:30 11/30/19 19:29 Dextrose (Dextrose 50%) 50 ml Q30M PRN IV Hypoglycemia 10/31/19 19:30 11/30/19 19:29 Dextrose/Sodium Chloride 1,000 ml @ 75 mls/hr [id number] IV 10/31/19 19:25 11/30/19 19:24 11/04/19 05:40 Diphenhydramine HCl (Benadryl) 25 mg Q6H PRN ORAL Itching/Pruritis 10/31/19 19:30 11/30/19 19:29 Hydromorphone HCl (Dilaudid) 0.25 mg Q4H PRN IVP pain 5-7 11/03/19 14:09 11/10/19 14:08 Hydromorphone HCl (Dilaudid) 0.5 mg Q4H PRN IVP pain 8-10 11/03/19 14:15 11/10/19 14:14 11/04/19 10:37 Loperamide HCl (Imodium) 2 mg Q6H PRN ORAL Diarrhea 11/04/19 11:45 12/04/19 11:44 11/04/19 11:39 Lorazepam (Ativan) 1 mg Q6H PRN ORAL For Anxiety 11/01/19 09:45 11/08/19 09:44 11/04/19 11:47 Nitroglycerin (Ntg) 0.4 mg Q5M X 3 DOSES PRN SL Prn Chest Pain 10/31/19 19:30 11/30/19 19:29 Ondansetron HCl (Zofran) 4 mg Q4H PRN IVP Nausea & Vomiting 11/01/19 09:45 12/01/19 09:44 11/04/19 10:37 Pantoprazole (Protonix) 40 mg DAILY IVP 11/01/19 09:00 12/01/19 08:59 11/04/19 09:21 Piperacillin Sod/ Tazobactam Sod 3.375 gm/Sodium Chloride 110 ml @ 27.5 mls/hr EVERY 8 HOURS IVPB 10/31/19 22:00 11/05/19 21:59 11/04/19 05:40 Polyethylene Glycol (Miralax) 17 gm HSPRN PRN ORAL Constipation 10/31/19 19:30 11/30/19 19:29 Sucralfate (Carafate) 1 gm TID ORAL 11/01/19 09:00 12/01/19 08:59 11/04/19 09:20 Temazepam (Restoril) 15 mg HSPRN PRN ORAL Insomnia 10/31/19 19:30 11/07/19 19:29 Tramadol HCl (Ultram) 50 mg Q6H PRN ORAL Pain Scale 1-5 11/01/19 11:00 11/08/19 10:59 Frankie Good MD Nov 04, 2019 12:10
--- NOTE | 2019-11-04 13:45 | Infectious Diseases Prog Note ---
Assessment/Plan Assessment/Plan ASSESSMENT: The patient is a 48-year-old female with: C Diff negative Fever, sp Normal white blood cells. UTI/pyelonephritis. - UCx : EColi Hyperlipidemia. Diverticulitis. Hysterectomy. History of . PLAN: cont pt on IV Zosyn # 4 , ok to dC pt on Levaquin x 1 wk ( Rx in chart ) Monitor CBC Monitor BMP Monitor cultures (blood,) Subjective Allergies: Coded Allergies: METOCLOPRAMIDE (Verified Allergy, Severe, 07/23/15) NSAIDS (NON-STEROIDAL ANTI-INFLAMMA (Verified Allergy, Severe, 07/23/15) MORPHINE (Verified Allergy, Intermediate, 07/23/15) PROCHLORPERAZINE (Verified Allergy, Intermediate, Hives, 07/23/15) SHELLFISH DERIVED (Verified Allergy, Unknown, 08/19/19) Subjective Cdiff neg afebrile over all much better Objective Vital Signs Last 24 Hour Vital Signs Date Time Temp Pulse Resp B/P (MAP) Pulse Ox O2 Delivery O2 Flow Rate FiO2 11/04/19 11:42 97.4 63 20 140/90 (107) 98 11/04/19 11:07 97.4 11/04/19 11:00 63 140/90 11/04/19 09:00 Room Air 11/04/19 08:35 97.4 63 20 162/101 (121) 98 11/04/19 04:00 97.4 71 20 153/97 (115) 98 11/04/19 00:00 97.7 77 20 130/86 (101) 98 11/03/19 21:00 Room Air 11/03/19 21:00 97.9 71 20 159/91 (113) 97 11/03/19 20:00 97.9 71 20 159/91 (113) 97 11/03/19 16:00 98.4 80 20 140/85 (103) 98 Height (Feet): 5 Height (Inches): 2.00 Weight (Pounds): 175 HEENT: anicteric Respiratory/Chest: no accessory muscle use Cardiovascular: regularly irregular Abdomen: no organomegaly Microbiology Date/Time Source Procedure Growth Status 11/03/19 14:00 Stool Clostridium difficile Toxin Assay - Final Complete Laboratory Tests Test 11/04/19 05:40 White Blood Count 6.1 K/UL (4.8-10.8) Red Blood Count 4.44 M/UL (4.20-5.40) Hemoglobin 12.2 G/DL (12.0-16.0) Hematocrit 35.9 % (37.0-47.0) L Mean Corpuscular Volume 81 FL (80-99) Mean Corpuscular Hemoglobin 27.4 PG (27.0-31.0) Mean Corpuscular Hemoglobin Concent 33.9 G/DL (32.0-36.0) Red Cell Distribution Width 11.7 % (11.6-14.8) Platelet Count 351 K/UL (150-450) Mean Platelet Volume 5.1 FL (6.5-10.1) L Neutrophils (%) (Auto) 48.1 % (45.0-75.0) Lymphocytes (%) (Auto) 40.1 % (20.0-45.0) Monocytes (%) (Auto) 9.3 % (1.0-10.0) Eosinophils (%) (Auto) 1.4 % (0.0-3.0) Basophils (%) (Auto) 1.1 % (0.0-2.0) Sodium Level 141 MMOL/L (136-145) Potassium Level 3.9 MMOL/L (3.5-5.1) Chloride Level 105 MMOL/L (98-107) Carbon Dioxide Level 27 MMOL/L (21-32) Anion Gap 9 mmol/L (5-15) Blood Urea Nitrogen 6 mg/dL (7-18) L Creatinine 0.5 MG/DL (0.55-1.30) L Estimat Glomerular Filtration Rate > 60 mL/min (>60) Glucose Level 98 MG/DL (74-106) Calcium Level 8.9 MG/DL (8.5-10.1) Phosphorus Level 2.8 MG/DL (2.5-4.9) Magnesium Level 1.9 MG/DL (1.8-2.4) Current Medications Medications (Trade) Dose Ordered Sig/Doug Route PRN Reason Start Time Stop Time Status Last Admin Dose Admin Acetaminophen (Tylenol) 650 mg Q4H PRN ORAL fever 10/31/19 19:30 11/30/19 19:29 Acetaminophen/ Hydrocodone Bitart ([place] 5/325) 1 tab Q4H PRN ORAL Moderate Pain (Pain Scale 4-6) 11/03/19 13:54 11/10/19 13:53 Amlodipine Besylate (Norvasc) 5 mg DAILY ORAL 11/04/19 11:00 12/04/19 10:59 Cyclobenzaprine HCl (Flexeril) 10 mg THREE TIMES A DAY ORAL 11/01/19 09:00 12/01/19 08:59 11/04/19 09:20 Dextrose (Dextrose 50%) 25 ml Q30M PRN IV Hypoglycemia 10/31/19 19:30 11/30/19 19:29 Dextrose (Dextrose 50%) 50 ml Q30M PRN IV Hypoglycemia 10/31/19 19:30 11/30/19 19:29 Dextrose/Sodium Chloride 1,000 ml @ 75 mls/hr [id number] IV 10/31/19 19:25 11/30/19 19:24 11/04/19 05:40 Diphenhydramine HCl (Benadryl) 25 mg Q6H PRN ORAL Itching/Pruritis 10/31/19 19:30 11/30/19 19:29 Hydromorphone HCl (Dilaudid) 0.25 mg Q4H PRN IVP pain 5-7 11/03/19 14:09 11/10/19 14:08 Loperamide HCl (Imodium) 2 mg Q6H PRN ORAL Diarrhea 11/04/19 11:45 12/04/19 11:44 11/04/19 11:39 Lorazepam (Ativan) 1 mg Q6H PRN ORAL For Anxiety 11/01/19 09:45 11/08/19 09:44 11/04/19 11:47 Ondansetron HCl (Zofran) 4 mg Q4H PRN IVP Nausea & Vomiting 11/01/19 09:45 12/01/19 09:44 11/04/19 10:37 Pantoprazole (Protonix) 40 mg DAILY IVP 11/01/19 09:00 12/01/19 08:59 11/04/19 09:21 Piperacillin Sod/ Tazobactam Sod 3.375 gm/Sodium Chloride 110 ml @ 27.5 mls/hr EVERY 8 HOURS IVPB 10/31/19 22:00 11/05/19 21:59 11/04/19 05:40 Michael Lin MD Nov 04, 2019 13:45
--- NOTE | 2019-11-04 14:42 | NUR ---
*-* INSURANCE *-* ALL CLINICALS AND REVIEWS HAVE BEEN FAXED TO: [facility] P: [phone] F: [phone] (FAX CLINICALS) & [facility] FAX CLINICALS TO: [phone]
[2019-11-04] MEDS ORDERED: CIPRO500 MG PO (14:43)
--- NOTE | 2019-11-04 14:48 | GI Initial Consult Note ---
History of Present Illness General Date patient seen: Nov 04, 2019 Time patient seen: 14:44 Reason for Hospitalization: General Complaint Referring physician: KAYLA MCKEON Reason for Consultation: DIARRHEA Present Illness HPI 48-year-old female, presents with dysuria, right flank pain, left leg pain x2 days no aggravating alleviating factors severity is mild, constant he endorses fever/chills, patient presents for evaluation GI consulted for reported persistent diarrhea. Patient seen, awake alert oriented x4 no apparent distress. No active signs or symptoms of any nausea vomiting. According to the patient, she is been having persistent diarrhea approximately 4-5 bowel movements per day. The patient denied any melena or hematochezia. The patient denies any previous episodes of persistent diarrhea. Denies any history of any irritable bowel disease. The patient states her last colonoscopy was approximately 4 years ago status post diverticulitis. Pathology sent negative for C. difficile. Home Meds Active Scripts Dicyclomine Hcl* (DICYCLOMINE HCL*) 10 Mg Capsule, 10 MG ORAL QID PRN for Abdominal cramps, #20 CAP Prov:Lenard Shaffer MD 09/07/19 Reported Medications Ciprofloxacin* (CIPRO*) 500 Mg Tablet, 500 MG PO Q12HR for PYELONEPHRITIS for 7 Days, TAB 11/04/19 [place] A-Et Estra/Fe Fumarate (LO LOESTRIN FE 1-10 TABLET) 1 Each Tablet, 1 EACH PO for control , TAB 10/31/19 Lorazepam* (ATIVAN*) 1 Mg Tablet, 1 MG ORAL BEDTIME for anxiety, TAB 10/31/19 Pantoprazole* (PROTONIX*) 40 Mg Tablet.dr, 40 MG ORAL DAILY for gerd, TAB 10/31/19 Docusate Sodium* (COLACE*) 100 Mg Capsule, 100 MG ORAL BID, CAP 07/23/15 Cyclobenzaprine Hcl* (FLEXERIL*) 10 Mg Tablet, 10 MG ORAL THREE TIMES A DAY, TAB 07/23/15 Diphenhydramine Hcl* (DIPHENHYDRAMINE HCL*) 25 Mg Capsule, 25 MG ORAL Q6H PRN for Itching, #30 CAP 0 Refills 07/23/15 Ondansetron (Zofran) 4 Mg Tab, 4 MG ORAL Q6H PRN for Nausea & Vomiting, TAB 07/23/15 Zolpidem Tartrate* (ZOLPIDEM TARTRATE*) 10 Mg Tablet, 10 MG ORAL BEDTIME PRN for Insomnia, TAB 0 Refills 07/23/15 Dicyclomine Hcl* (DICYCLOMINE HCL*) 10 Mg Capsule, 20 MG PO QID, CAP 07/23/15 Promethazine Hcl* (PHENERGAN*) 25 Mg Tablet, 40 MG ORAL BID, TAB 07/23/15 Sucralfate* (CARAFATE*) 1 Gm Tablet, 1 GM ORAL TID, TAB 07/23/15 Lorazepam (Lorazepam) 2 Mg/1 Ml Disp.syrin, 2 MG PO BID, EA 07/23/15 Oxycodone Hcl/Acetaminophen 5-325* (OXYCODONE-ACETAMINOPHEN 5-325*) 1 Each Tablet, 1 TAB ORAL Q6H PRN for For Pain, #30 TAB 0 Refills 07/23/15 Med list reviewed/reconciled: Yes Allergies: Coded Allergies: METOCLOPRAMIDE (Verified Allergy, Severe, 07/23/15) NSAIDS (NON-STEROIDAL ANTI-INFLAMMA (Verified Allergy, Severe, 07/23/15) MORPHINE (Verified Allergy, Intermediate, 07/23/15) PROCHLORPERAZINE (Verified Allergy, Intermediate, Hives, 07/23/15) SHELLFISH DERIVED (Verified Allergy, Unknown, 08/19/19) Patient History Limited by: medical condition History Provided By: Patient, Medical Record PMH Narrative Past Medical History: see triage record Last Menstrual Period: hystrectomy Reviewed Nursing Documentation: PMH: Agreed; PSxH: Agreed Nursing Documentation-PMH Past Medical History: No History, Except For Hx Cancer: No Hx Gastrointestinal Problems: Yes - gastroparesis, gastritis, HYSTERECTOMNY Hx Neurological Problems: No Social History: Denies: smoking, alcohol use, drug use, other Review of Systems All Other Systems: negative except mentioned in HPI Physical Exam Vital Signs Date Time Temp Pulse Resp B/P (MAP) Pulse Ox O2 Delivery O2 Flow Rate FiO2 10/31/19 14:49 102.4 89 16 128/95 (106) 100 Room Air Sp02 EP Interpretation: reviewed, normal Labs Laboratory Tests Test 11/04/19 05:40 White Blood Count 6.1 K/UL (4.8-10.8) Red Blood Count 4.44 M/UL (4.20-5.40) Hemoglobin 12.2 G/DL (12.0-16.0) Hematocrit 35.9 % (37.0-47.0) L Mean Corpuscular Volume 81 FL (80-99) Mean Corpuscular Hemoglobin 27.4 PG (27.0-31.0) Mean Corpuscular Hemoglobin Concent 33.9 G/DL (32.0-36.0) Red Cell Distribution Width 11.7 % (11.6-14.8) Platelet Count 351 K/UL (150-450) Mean Platelet Volume 5.1 FL (6.5-10.1) L Neutrophils (%) (Auto) 48.1 % (45.0-75.0) Lymphocytes (%) (Auto) 40.1 % (20.0-45.0) Monocytes (%) (Auto) 9.3 % (1.0-10.0) Eosinophils (%) (Auto) 1.4 % (0.0-3.0) Basophils (%) (Auto) 1.1 % (0.0-2.0) Sodium Level 141 MMOL/L (136-145) Potassium Level 3.9 MMOL/L (3.5-5.1) Chloride Level 105 MMOL/L (98-107) Carbon Dioxide Level 27 MMOL/L (21-32) Anion Gap 9 mmol/L (5-15) Blood Urea Nitrogen 6 mg/dL (7-18) L Creatinine 0.5 MG/DL (0.55-1.30) L Estimat Glomerular Filtration Rate > 60 mL/min (>60) Glucose Level 98 MG/DL (74-106) Calcium Level 8.9 MG/DL (8.5-10.1) Phosphorus Level 2.8 MG/DL (2.5-4.9) Magnesium Level 1.9 MG/DL (1.8-2.4) General Appearance: well appearing, no apparent distress, alert Head: normocephalic EENT: PERRL/EOMI, normal ENT inspection Neck: supple Respiratory: normal breath sounds, no respiratory distress Cardiovascular: normal rate Gastrointestinal: normal inspection, non tender, soft, normal bowel sounds, non -distended Rectal: deferred Genitourinary: no CVA tenderness Musculoskeletal: normal inspection, back normal Neurologic: alert, oriented x3, responsive, normal inspection Psychiatric: normal inspection, judgement/insight normal, memory normal Skin: normal inspection, normal color, no rash, warm/dry, palpation normal, well hydrated Lymphatic: normal inspection, no adenopathy Current Medications Current Medications Medications (Trade) Dose Ordered Sig/Doug Route PRN Reason Start Time Stop Time Status Last Admin Dose Admin Acetaminophen (Tylenol) 650 mg Q4H PRN ORAL fever 10/31/19 19:30 11/30/19 19:29 Acetaminophen/ Hydrocodone Bitart ([place] 5/325) 1 tab Q4H PRN ORAL Moderate Pain (Pain Scale 4-6) 11/03/19 13:54 11/10/19 13:53 Amlodipine Besylate (Norvasc) 5 mg DAILY ORAL 11/04/19 11:00 12/04/19 10:59 Cyclobenzaprine HCl (Flexeril) 10 mg THREE TIMES A DAY ORAL 11/01/19 09:00 12/01/19 08:59 11/04/19 13:47 Dextrose (Dextrose 50%) 25 ml Q30M PRN IV Hypoglycemia 10/31/19 19:30 11/30/19 19:29 Dextrose (Dextrose 50%) 50 ml Q30M PRN IV Hypoglycemia 10/31/19 19:30 11/30/19 19:29 Dextrose/Sodium Chloride 1,000 ml @ 75 mls/hr [id number] IV 10/31/19 19:25 11/30/19 19:24 11/04/19 05:40 Diphenhydramine HCl (Benadryl) 25 mg Q6H PRN ORAL Itching/Pruritis 10/31/19 19:30 11/30/19 19:29 Hydromorphone HCl (Dilaudid) 0.25 mg Q4H PRN IVP pain 5-7 11/03/19 14:09 11/10/19 14:08 Loperamide HCl (Imodium) 2 mg Q6H PRN ORAL Diarrhea 11/04/19 11:45 12/04/19 11:44 11/04/19 11:39 Lorazepam (Ativan) 1 mg Q6H PRN ORAL For Anxiety 11/01/19 09:45 11/08/19 09:44 11/04/19 11:47 Ondansetron HCl (Zofran) 4 mg Q4H PRN IVP Nausea & Vomiting 11/01/19 09:45 12/01/19 09:44 11/04/19 10:37 Pantoprazole (Protonix) 40 mg DAILY IVP 11/01/19 09:00 12/01/19 08:59 11/04/19 09:21 Piperacillin Sod/ Tazobactam Sod 3.375 gm/Sodium Chloride 110 ml @ 27.5 mls/hr EVERY 8 HOURS IVPB 10/31/19 22:00 11/07/19 21:59 11/04/19 13:49 GI: Plan Problems: (1) Diarrhea Plan Diarrhea secondary to antibiotic use History of diverticulitis, status post colonoscopy approximately 4 years ago C. difficile negative Okay to DC per GI standpoint Instructed patient to use Imodium OTC for any persistent diarrhea BRAT diet education given P.o. hydration plus electrolyte correction Outpatient follow-up with primary GI Discussed with Dr. Ye. Thank you for this patient referral, we will follow. The patient was seen and examined at bedside and all new and available data was reviewed in the patients chart. I agree with the above findings, impression and plan. (Patient seen earlier today. Signature stamp does not reflect patient encounter time.). - MD Calista Cuellar Anh-Mikey KAUR Nov 04, 2019 14:48
[2019-11-04] MEDS ORDERED: D5NS 1000ml IV ONE (15:11)
--- NOTE | 2019-11-04 15:12 | NUR ---
NURSE NOTES: PT LEFT IN STABLE CONDITION W ALL HER BELONGINGS. RX W THE PATIENT, THEY WILL FILL IT. COPY OF RX IN CHART. ARM BAND REMOVED AND IV ON RIGHT HAND REMOVED, NO BLEEDING. DC INSTRUCTIONS RENDERED TO PT W VERBALIZED UNDERSTANDING.
--- NOTE | 2019-11-04 16:29 | NUR ---
CASE MANAGEMENT: REVIEW 11/02/19 SI:PYELONEPHRITIS . UTI 95.9 87 18 124/82 98% ON RA K+ 3.1 BG 126 CA+ 8.4 PHOS 8.4 H/H 11.2/33.6 IS:IV ZOSYN TID IV PROTONIX QD IV DILAUDID Q3HR.PRN IV ZOFRAN Q4HR/PRN ATIVAN Q6HR/PRN \: 3E MED SURG UNIT PLAN: START ON CLEARS CASE MANAGEMENT: REVIEW 11/03/19 SI:PYELONEPHRITIS . UTI 98.4 75 20 138/73 97% ON RA K+ 3.4 BUN 6 CA+ 8.2 H/H 10.8/32.6 IS:IV ZOSYN TID IV PROTONIX QD IV DILAUDID Q3HR.PRN IV ZOFRAN Q4HR/PRN ATIVAN Q6HR/PRN \: 3E MED SURG UNIT PLAN: START REG DIET CONTROL DIARRHEA PATIENT NOT TOLERATING DIET PATIENT STILL WITH ABD PAIN
--- NOTE | 2019-11-05 11:44 | NUR ---
*-* INSURANCE *-* UPDATED CLINICALS AND DISCHARGE INSTRUCTIONS HAVE BEEN FAXED TO NO D/C SUMMARY AVAILABLE: [facility] P: [phone] F: [phone] (FAX CLINICALS) & [facility] FAX CLINICALS TO: [phone]
--- NOTE | 2019-11-05 14:30 | Discharge Summary ---
Discharge Summary Discharge Summary _ DATE OF ADMISSION: 10/31/2019 DATE OF DISCHARGE: 11/04/2019 DISCHARGED BY: Dr. Lockhart REASON FOR ADMISSION: 48 years old female with past medical history of hypercholesterolemia, gastritis, anemia, endometriosis, presented to emergency department with dysuria , left flank pain, fever and chills, for 2 days. Upon presentation to the emergency department patient was febrile with temperature 102.4. After further short evaluation patient was found to have a urinary tract infection with a concern for pyelonephritis patient. Patient received empiric antibiotic emergency department started on the IV fluids and admitted for further management. Laboratory work-up revealed no leukocytosis . Lactic acid 0.4,. Sta renal parameters. Phosphorus 1.5 magnesium 1.5. Troponin negative. Urinalysis was grossly positive for urinary tract infection. Chest x-ray revealed no acute cardiopulmonary pathology. CT scan of the abdomen and pelvis demonstrated enlarged left kidney with perinephric inflammation and urothelial enhancement and enhancement. Consistent with a pyelitis and nephropathy , particularly in view of her stated clinical history. Patient admitted to medical surgical floor for further management CONSULTANTS: pulmonary hospitalist Dr. Good ID specialist Dr. Lin GI specialist Dr. Ye [facility]: Patient admitted and started on IV fluids and empiric antibiotic. Patient initially was kept n.p.o. Antibiotic provided as per ID specialist recommendation. Urine culture revealed E. coli. Influenza screen was negative. Blood cultures were negative . Stool for C. difficile was negative as well. Patient noted to have severe diarrhea. Stool for C. difficile was negative. Fever resolved, no leukocytosis. GI seen and evaluated patient . per GI diarrhea was secondary to antibiotic use . patient with history of diverticulitis , status post colonoscopy about 4 years ago. GI specialist cleared patient for discharge. Patient was instructed to use Imodium [id number] for persistent diarrhea. BRAT diet education was provided to the patient. Outpatient follow-up with a GI specialist as per insurance. Oral hydration was encouraged. Electrolytes corrected. Patient had episode of emesis , possibly opiate induced. Subsequently Dilaudid was stopped, and patient started on trial of Toradol and Colton only orally. Pain was controlled. Symptomatic treatment provided. Patient slowly started on diet, and was able to tolerate it. Blood pressure was managed with calcium channel kuldip. GI prophylaxis provided. Patient clinically stabilized and was ready for discharge FINAL DIAGNOSES: UTI/pyelonephritis with E. coli Diarrhea Electrolyte imbalance : hypokalemia, hypomagnesemia, hypophosphatemia Gastroparesis Morbid obesity Hyperlipidemia Hysterectomy History of DISCHARGE MEDICATIONS: See Medication Reconciliation list. DISCHARGE INSTRUCTIONS: Patient was discharged home. Patient to follow-up with a primary care provider in 1 week. Patient need to follow-up with GI specialist per insurance I have been assigned to dictate discharge summary for this account. I was not involved in the patient's management. Leann Lee NP Nov 05, 2019 14:30
--- NOTE | 2019-11-06 16:39 | NUR ---
*-* INSURANCE *-* DISCHARGE SUMMARY HAS BEEN FAXED [facility] P: [phone] F: [phone] (FAX CLINICALS)
== END 2019-11-04 15:12 | disposition home or self-care (01) | DRG 463 ==
LOC: EMR 15:31 → 3E 16:00 → EDBEDREQ 18:14
DX: N39.0 Urinary tract infection, site not specified (principal); E66.01 Morbid (severe) obesity due to excess calories; Z68.32 Body mass index [BMI] 32.0-32.9, adult; Z88.6 Allergy status to analgesic agent; Z88.8 Allergy status to other drugs, medicaments and biological substances; E87.6 Hypokalemia; E83.42 Hypomagnesemia; K31.84 Gastroparesis; E78.5 Hyperlipidemia, unspecified; Z90.710 Acquired absence of both cervix and uterus; R19.7 Diarrhea, unspecified
CPT/HCPCS: 36415; 71045; 74177; 80048; 80053; 81003; 82150; 82550; 83605; 83690; 83735; 83880; 84100; 84443; 84484; 84702; 85007; 85025; 85610; 85730; 86710; 87040; 87086; 87181; 87324; 93005; 96365; 96375; 96376; 99285; J2405; J7030; J8499